=== PATIENT | female | born 1980 | race Caucasian/White ===

== ENCOUNTER → 2020-06-23 15:20 | Outpatient (BNVA) | payer OTHER, SELFPAY | PROVIDERS: Visit Provider Obstetrics & Gynecology | DX: Z76.89 Persons encountering health services in other specified circumstances (principal) ==

== ENCOUNTER 2020-07-28 08:16 | Outpatient (REF) | payer OTHER, SELFPAY ==
[2020-07-28 08:28] LABS: COVID-19 Test Positive (Negative)
== END 2020-07-28 08:17 | disposition home or self-care (01) ==
LOC: HO.EMPCOV 08:16
PROVIDERS: Visit Provider Internal Medicine
DX: Z20.828 Contact with and (suspected) exposure to other viral communicable diseases (principal)
CPT/HCPCS: 36415; 87635; C9803

== ENCOUNTER 2020-10-10 09:13 | Outpatient (REF) | payer OTHER, SELFPAY ==
[2020-10-10 09:34] LABS: COVID-19 Test Negative (Negative)
== END 2020-10-10 09:14 | disposition home or self-care (01) ==
LOC: HO.EMPCOV 09:13
PROVIDERS: Visit Provider Internal Medicine
DX: Z20.822 Contact with and (suspected) exposure to COVID-19 (principal)
CPT/HCPCS: 36415; 87635; C9803

== ENCOUNTER 2020-10-20 12:11 | Outpatient (REF) | payer OTHER, SELFPAY ==
[2020-10-20 14:00] LABS: Hematocrit 38.1 % (37-47); Hemoglobin 12.3 g/dl (12.0-16.0); Mean Corpuscular HGB Conc 32.3 g/dl (31.0-35.0); Mean Corpuscular Hemoglobin 27.5 pg (27.0-33.0); Mean Corpuscular Volume 85.2 fL (80-98); Mean Platelet Volume 10.5 fL (9.4-12.3); Platelet Count 227 X10*3/uL (160-400); Red Blood Count 4.47 X10*6/uL (4.20-5.50); Red Cell Distribution Width 14.2 % (11.0-16.0); White Blood Count 5.2 X10*3/uL (4.8-10.8)
[2020-10-20 14:16] LABS: Anion Gap 13 (12-20); Blood Urea Nitrogen 16 mg/dL (9-16); Calcium 8.7 mg/dL (8.4-10.2); Carbon Dioxide 26 mmol/L (22-29); Chloride 101 mmol/L (96-108); Cholesterol 242 mg/dL; Estimated Glomerular Filt Rate > 60; Glucose Random 112 mg/dL (60-115); HDL Cholesterol 60 mg/dL; Iron 30 mcg/dL (30-160); Percent Iron Saturation 7 % (15-50); Potassium 3.4 mmol/L (3.3-5.1); Sodium 137 mmol/L (135-145); Total Iron Binding Capacity 408 mcg/dL (228-428); Unsaturated Iron Binding 378 ug/dL
[2020-10-20 14:38] LABS: Ferritin 44 ng/mL (10-122); TSH reflex Free T4 1.26 uIU/mL (0.32-4.0); Vitamin D 25-OH Total 11.4 ng/mL (>30)
[2020-10-21 08:18] LABS: LDL Cholesterol Direct 171 mg/dL (<100)
== END 2020-10-20 12:12 | disposition home or self-care (01) ==
LOC: HO.HMGCLDS 12:11
PROVIDERS: Visit Provider Internal Medicine
DX: Z00.00 Encounter for general adult medical examination without abnormal findings (principal); E78.00 Pure hypercholesterolemia, unspecified; E55.9 Vitamin D deficiency, unspecified; G98.0 Neurogenic arthritis, not elsewhere classified; Z80.0 Family history of malignant neoplasm of digestive organs
CPT/HCPCS: 36415; 80048; 82306; 82465; 82728; 83540; 83718; 83721; 84443; 85027

== ENCOUNTER 2020-11-26 13:14 | Inpatient (IN) | payer OTHER, SELFPAY ==
[2020-11-26] VITALS (7 sets, daily range): BP systolic 108–140; BP diastolic 60–95; PULSE 64–147; RESP 14–18; TEMP 36.6–36.9; O2SAT 96–100; BMI 25.2
--- NOTE | ~2020-11-26 | XR_ITS ---
EXAMINATION: XR CHEST CLINICAL INFORMATION: New onset of atrial fibrillation COMPARISON: None TECHNIQUE: 2 views of the chest were obtained. FINDINGS: No significant abnormality is noted involving the heart, lungs, mediastinum, bony thorax or soft tissues. XR/XR chest 2V IMPRESSION: Unremarkable chest examination.
--- NOTE | 2020-11-26 13:56 | ECG_ITS ---
Test Reason : ARRTHYMIA Blood Pressure : / mmHG Vent. Rate : 073 BPM Atrial Rate : 073 BPM P-R Int : 144 ms QRS Dur : 072 ms QT Int : 396 ms P-R-T Axes : 052 059 -23 degrees QTc Int : 436 ms Normal sinus rhythm Low voltage QRS ST & T wave abnormality, consider inferior ischemia Abnormal ECG No previous ECGs available Referred By: Lizzie Ramirez Electronically Signed By:CAL ASHER MD
[2020-11-26] MEDS: 0.9 % Sodium Chloride 1,000 ML 999 ML IVCONT (14:45)
[2020-11-26] MEDS: Metoprolol Succinate ER 25 MG TAB.ER.24H PO (14:55)
--- NOTE | 2020-11-26 16:03 | ED_ITS ---
HPI - Arrhythmia/Palpitations General Chief Complaint: Arrhythmia/Palpitations Stated Complaint: PALPITATIONS,HR 90-150'S PER EMS Time Seen by Provider: 11/26/20 13:53 Source: patient Mode of arrival: ambulatory Limitations: no limitations History of Present Illness HPI narrative: 40-year-old female with a past medical history of Charcot-Elena Tooth Disease presenting to the ED with complaints of feeling like her heart is racing over the past 3 days intermittently worse today. She was sent over by her primary care provider's office due to she made a general appointment due to the sensation of her heart was racing they performed an EKG and they found her to be in atrial fibrillation and therefore they sent her here for further evaluation and treatment. Patient denies any stressors, dizziness, headaches, lightheadedness, changes in vision, chest pain, shortness of breath, dyspnea on exertion, orthopnea, abdominal pain, back pain, lower extremity edema, calf tenderness, recent travel, sick contacts, history of hypercoagulation disorder, estrogen usage, recent surgery or immobilization, history of cancer, history of drug usage or alcohol usage, recent trauma or any other symptoms complaints or concerns at this time. Patient admits to currently being on her menstrual. Although she reports her flow has been normal as usual. She denies any clots. She denies having history of atrial fibrillation. She denies being on any blood thinners. - 16:30pm At this time I went back into the room to ask the patient if she drank any monsters or red Bulls because she denied any alcohol or drug usage initially or she did not hear me properly when I asked her although at this time she reports that on Tuesday she drank approximately 3 beers. She reports she is not a daily drinker. complaint: heart racing Onset (ago): day(s) (Intermittently over the past 3 days) Severity: moderate Context: occurred during rest Associated symptoms: denies other symptoms Related Data Home Medications Medication Instructions Recorded Confirmed No Known Home Meds 11/26/20 11/26/20 Allergies Allergy/AdvReac Type Severity Reaction Status Date / Time No Known Allergies Allergy Verified 06/23/20 15:32 Review of Systems Review of Systems: Constitutional : No Weight loss, No Fever, No Chills, No Night Sweats, No Fatigue, No Malaise ENT/Mouth : No Hearing loss, No Ear Pain, No Nasal Congestion, No Sinus Pain, No Hoarseness, No sore throat, No Rhinorrhea, No Swallowing Difficulty Eyes: No Eye Pain, No Swelling, No Redness, No Foreign Body, No Discharge, No Vision Changes Cardiovascular : Positive palpitations, No Chest Pain, No SOB, no Dyspnea on Exertion, No Orthopnea, No Edema, No extremity swelling Respiratory : No Cough, No Sputum, No Wheezing, No Dyspnea Gastrointestinal : No Nausea, No Vomiting, No Diarrhea, No abdominal Pain, No Hematochezia, No Melena Genitourinary : No irregular bleeding, No Dysuria, No Urinary Frequency, No Hematuria, No Urinary Incontinence, No Urgency, No Flank Pain, No Urinary Flow Changes, No Hesitancy Musculoskeletal : No joint pain, No Myalgias, No Joint Swelling Skin : No Skin Lesions, No rash Neuro : No Weakness, No Numbness, No Paresthesias, No Loss of Consciousness, No Dizziness, No Headache Psych : No Anxiety/Panic, No Depression, No SI/HI/AH/VH Heme/Lymph: No Bruising, No Bleeding,No Lymphadenopathy Endocrine : No Polyuria, No Polydipsia, No Temperature Intolerance Yes all other systems are reviewed and are negative PMFSH Past Medical History Attestation statement: The following information was validated with the patient. Medical History CMT (Hafbpzb-Qlpgy-Trdzc disease) Surgical History Hx of section Hx of foot surgery Family History Family History Mother Colon cancer Social History Social History Alcohol intake: current Smoking Status: Never smoker Advance Directives: No Advance Directives Information Provided: No Patient : No Sexual orientation: Straight/Heterosexual Gender identity: female Physical Exam Vital Signs: Vital Signs: Last Vital Signs Temp 98.4 F 11/26/20 13:24 Pulse 147 H 11/26/20 14:55 Resp 14 11/26/20 13:24 BP 134/81 11/26/20 14:55 Pulse Ox 100 11/26/20 13:24 Body Mass Index 25.2 vital signs have been reviewed as normal and appeared to be correct. Blood pressure normal. Heart rate normal. Respiration rate normal. Temperature normal. Oxygen saturation normal. Appearance: Alert. Oriented X3. No acute distress. Head: Normal external exam. Normocephalic. Eyes: PERRLA. EOMI. Conjunctiva and sclera normal. Eyelids normal. ENT: Pharynx normal. Uvula midline. Moist mucous membranes. No trismus noted. No drooling noted. No muffled voice noted. Neck: Normal inspection. Neck supple. FROM. No adenopathy. No meningeal signs. CVS: Normal heart rate and rhythm. Although patient goes into atrial fibrillation intermittently up to a rate 170. Heart sound normal. No murmurs noted. Pulses normal throughout. Respiratory: No respiratory distress. Painless inspiration. Breath sounds normal. No wheezes/rales/rhonchi noted. Chest nontender. No accessory muscle usage noted or decreased air movement noted. Abdomen: Soft and nontender. Nondistended. No guarding. No rigidity. Bowel sounds normal in all 4 quadrants. No distention noted. No organomegaly noted. No visible injury noted. No rebound tenderness. Negative Rovsing sign. Negative obturator's sign. Negative psoas sign. Negative Turk sign. Back: No CVA tenderness. Full range of motion noted. Skin: Skin warm and dry. Normal skin color. Normal skin turgor. No rashes/lesions/lacerations noted. Extremities: Extremities exhibit normal range of motion. Extremities nontender. Neuro: Oriented X 3. No motor deficit. No sensory deficit. Reflexes normal. Normal steady gait. Course Course Course Narrative: 14:50pm - patient appears to be going into paroxysmal atrial fibrillation on the phototypesetting equipment monitor therefore consulted with Dr. Nielson and he requested patient not be placed on any anticoagulation although he reported that the patient can be started on 25 mg of metoprolol XL, to order a cardiac echo and to admit for observation - therefore patient will be admitted after her labs are obtained for observation for new onset of paroxysmal atrial fibrillation. Patient understands agrees with this plan. Reevaluation(s) Reevaluation #1: - labs returned and all within normal limits. Serum quant negative for . ETOH level negative. Chest x-ray negative for pneumonia or any other acute processes. EKG was normal sinus rhythm no acute ischemic changes were noted. Although on the phototypesetting equipment monitor patient was going into paroxysmal atrial fibrillation therefore she will be admitted for an echo in observation for new onset of paroxysmal atrial fibrillation. Patient understands agrees with this plan. Time: 17:04 MDM - Arrhythmia/Palpitations MDM Narrative Medical decision making narrative: 14pm - 40-year-old female with a past medical history of Charcot-Elena Tooth Disease presenting to the ED with complaints of feeling like her heart is racing over the past 3 days intermittently worse today. - On exam patient is alert and oriented x3. Not in any acute distress. She was not tachycardic initially when she arrived although we placed on the phototypesetting equipment monitor she goes up to 170 beats per minute into atrial fibrillation that she dropped back down to the 70s. Otherwise other vitals are within normal limits. No focal neuro deficits are noted. Lungs clear to auscultation. Abdomen is soft and nontender. No lower extremity edema or calf tenderness noted. - Plan: Labs, chest x-ray, EKG, phototypesetting equipment monitor, med reconciliation due to patient will need to be admitted for new onset of atrial fibrillation. Then re-evaluate Medical Records Attestation: I reviewed the patient's medical records. Lab Data Attestation: I reviewed the patient's lab results. Result diagrams: 11/26/20 16:14 11/26/20 16:14 Labs: Lab Results 11/26/20 11/26/20 11/26/20 Range/Units 16:14 16:14 16:14 WBC 6.2 (4.8-10.8) X10*3/uL RBC 4.75 (4.20-5.50) X10*6/uL Hgb 13.3 (12.0-16.0) g/dl Hct 39.8 (37-47) % MCV 83.8 (80-98) fL MCH 28.0 (27.0-33.0) pg MCHC 33.4 (31.0-35.0) g/dl RDW 13.5 (11.0-16.0) % Plt Count 253 (160-400) X10*3/uL MPV 10.2 (9.4-12.3) fL Immature Gran % (Auto) 0.3 (0.0-0.4) % Neut % (Auto) 68.9 (45-73) % Lymph % (Auto) 21.8 (20-40) % [place] % (Auto) 7.1 (2-11) % Eos % (Auto) 1.3 (0-4) % Baso % (Auto) 0.6 (0-2) % Lymph # (Auto) 1.4 (1.2-4.9) X10*3/uL [place] # (Auto) 0.4 (0.1-1.2) X10*3/uL Eos # (Auto) 0.1 (0.0-0.4) X10*3/uL Baso # (Auto) 0.0 (0.0-0.2) X10*3/uL Abs Immat Gran (auto) 0.02 (0.00-0.03) X10*3/uL Absolute Neuts (auto) 4.3 (2.0-8.3) X10*3/uL Absolute Nucleated RBC 0.000 (0.0-0.012) X10*3/uL Nucleated RBC % (auto) 0.0 (0.0-0.2) /100WBC PT 13.4 H (10.8-13.0) SEC INR 1.1 (0.9-1.1) D-Dimer NG/ML Sodium (135-145) mmol/L Potassium (3.3-5.1) mmol/L Chloride (96-108) mmol/L Carbon Dioxide (22-29) mmol/L Anion Gap (12-20) BUN (9-16) mg/dL Creatinine (0.5-1.4) mg/dL Estim Creat Clear Calc Estimated GFR Random Glucose (60-115) mg/dL Calcium (8.4-10.2) mg/dL Magnesium 1.9 (1.6-2.6) mg/dL Total Bilirubin (0.0-1.0) mg/dL AST (5-31) U/L ALT (0-31) U/L Alkaline Phosphatase (39-117) U/L Troponin I High Sens (<3.5-17.0) ng/L B-Natriuretic Peptide (<100) pg/mL Total Protein (6.5-8.0) g/dL Albumin (3.5-5.0) g/dL Beta HCG, Quant mIU/mL Ethyl Alcohol mg/dL 11/26/20 11/26/20 11/26/20 Range/Units 16:14 16:14 16:15 WBC (4.8-10.8) X10*3/uL RBC (4.20-5.50) X10*6/uL Hgb (12.0-16.0) g/dl Hct (37-47) % MCV (80-98) fL MCH (27.0-33.0) pg MCHC (31.0-35.0) g/dl RDW (11.0-16.0) % Plt Count (160-400) X10*3/uL MPV (9.4-12.3) fL Immature Gran % (Auto) (0.0-0.4) % Neut % (Auto) (45-73) % Lymph % (Auto) (20-40) % [place] % (Auto) (2-11) % Eos % (Auto) (0-4) % Baso % (Auto) (0-2) % Lymph # (Auto) (1.2-4.9) X10*3/uL [place] # (Auto) (0.1-1.2) X10*3/uL Eos # (Auto) (0.0-0.4) X10*3/uL Baso # (Auto) (0.0-0.2) X10*3/uL Abs Immat Gran (auto) (0.00-0.03) X10*3/uL Absolute Neuts (auto) (2.0-8.3) X10*3/uL Absolute Nucleated RBC (0.0-0.012) X10*3/uL Nucleated RBC % (auto) (0.0-0.2) /100WBC PT (10.8-13.0) SEC INR (0.9-1.1) D-Dimer NG/ML Sodium 141 (135-145) mmol/L Potassium 3.8 (3.3-5.1) mmol/L Chloride 107 (96-108) mmol/L Carbon Dioxide 27 (22-29) mmol/L Anion Gap 11 L (12-20) BUN 9 (9-16) mg/dL Creatinine 0.70 (0.5-1.4) mg/dL Estim Creat Clear Calc 101.3 Estimated GFR > 60 Random Glucose 91 (60-115) mg/dL Calcium 9.0 (8.4-10.2) mg/dL Magnesium (1.6-2.6) mg/dL Total Bilirubin 0.7 (0.0-1.0) mg/dL AST 17 (5-31) U/L ALT 13 (0-31) U/L Alkaline Phosphatase 78 (39-117) U/L Troponin I High Sens < 3.5 (<3.5-17.0) ng/L B-Natriuretic Peptide 47 (<100) pg/mL Total Protein 7.6 (6.5-8.0) g/dL Albumin 4.4 (3.5-5.0) g/dL Beta HCG, Quant mIU/mL Ethyl Alcohol < 10 mg/dL 11/26/20 11/26/20 Range/Units 16:15 16:16 WBC (4.8-10.8) X10*3/uL RBC (4.20-5.50) X10*6/uL Hgb (12.0-16.0) g/dl Hct (37-47) % MCV (80-98) fL MCH (27.0-33.0) pg MCHC (31.0-35.0) g/dl RDW (11.0-16.0) % Plt Count (160-400) X10*3/uL MPV (9.4-12.3) fL Immature Gran % (Auto) (0.0-0.4) % Neut % (Auto) (45-73) % Lymph % (Auto) (20-40) % [place] % (Auto) (2-11) % Eos % (Auto) (0-4) % Baso % (Auto) (0-2) % Lymph # (Auto) (1.2-4.9) X10*3/uL [place] # (Auto) (0.1-1.2) X10*3/uL Eos # (Auto) (0.0-0.4) X10*3/uL Baso # (Auto) (0.0-0.2) X10*3/uL Abs Immat Gran (auto) (0.00-0.03) X10*3/uL Absolute Neuts (auto) (2.0-8.3) X10*3/uL Absolute Nucleated RBC (0.0-0.012) X10*3/uL Nucleated RBC % (auto) (0.0-0.2) /100WBC PT (10.8-13.0) SEC INR (0.9-1.1) D-Dimer 255 NG/ML Sodium (135-145) mmol/L Potassium (3.3-5.1) mmol/L Chloride (96-108) mmol/L Carbon Dioxide (22-29) mmol/L Anion Gap (12-20) BUN (9-16) mg/dL Creatinine (0.5-1.4) mg/dL Estim Creat Clear Calc Estimated GFR Random Glucose (60-115) mg/dL Calcium (8.4-10.2) mg/dL Magnesium (1.6-2.6) mg/dL Total Bilirubin (0.0-1.0) mg/dL AST (5-31) U/L ALT (0-31) U/L Alkaline Phosphatase (39-117) U/L Troponin I High Sens (<3.5-17.0) ng/L B-Natriuretic Peptide (<100) pg/mL Total Protein (6.5-8.0) g/dL Albumin (3.5-5.0) g/dL Beta HCG, Quant < 2 mIU/mL Ethyl Alcohol mg/dL Imaging Data Chest x-ray: Attestation: I personally reviewed and interpreted this imaging study as follows: Radiologist's impression: FINDINGS: No significant abnormality is noted involving the heart, lungs, mediastinum, bony thorax or soft tissues. XR/XR chest 2V IMPRESSION: Unremarkable chest examination. ECG Data Attestation: I personally reviewed and interpreted this ECG as follows: ECG interpretation date: 11/26/20 ECG interpretation time: 14:11 Interpretation: Normal sinus rhythm with low-voltage QRS with nonspecific ST and T-wave abnormalities no acute ischemic changes are noted patient is currently not in atrial fibrillation at this time although on a phototypesetting equipment monitor patient goes into paroxysmal atrial fibrillation. No prior EKGs in our system to compare to at this time. Critical Care Time Critical Care Time Critical Care Time: Yes Total Critical Care Time: 60 Attestation: I personally attest to this time spent taking care of the patient Discharge Plan Discharge Clinical Impression: Paroxysmal atrial fibrillation Patient Disposition: Admitted As Inpatient
[2020-11-26 16:26] LABS: MANUAL DIFF FLAG NO
[2020-11-26 16:29] LABS: Basophils Percent Auto 0.6 % (0-2); Eosinophils Absolute Auto 0.1 X10*3/uL (0.0-0.4); Eosinophils Percent Auto 1.3 % (0-4); Hematocrit 39.8 % (37-47); Hemoglobin 13.3 g/dl (12.0-16.0); Imm Gran Abs Auto 0.02 X10*3/uL (0.00-0.03); Imm Gran Pct Auto 0.3 % (0.0-0.4); Lymphocytes Absolute Auto 1.4 X10*3/uL (1.2-4.9); Lymphocytes Percent Auto 21.8 % (20-40); Mean Corpuscular HGB Conc 33.4 g/dl (31.0-35.0); Mean Corpuscular Volume 83.8 fL (80-98); Mean Platelet Volume 10.2 fL (9.4-12.3); Monocytes Absolute Auto 0.4 X10*3/uL (0.1-1.2); Monocytes Percent Auto 7.1 % (2-11); Neutrophils Absolute Auto 4.3 X10*3/uL (2.0-8.3); Neutrophils Percent Auto 68.9 % (45-73); Platelet Count 253 X10*3/uL (160-400); Red Blood Count 4.75 X10*6/uL (4.20-5.50); Red Cell Distribution Width 13.5 % (11.0-16.0); White Blood Count 6.2 X10*3/uL (4.8-10.8)
[2020-11-26 16:33] LABS: INTERNATIONAL NORM RATIO 1.1 (0.9-1.1); Prothrombin Time 13.4 SEC (10.8-13.0)
[2020-11-26 16:36] LABS: D Dimer 255 NG/ML
[2020-11-26 16:48] LABS: Ethanol < 10 mg/dL
[2020-11-26 16:54] LABS: HCG Quantitative < 2 mIU/mL
[2020-11-26 16:54] LABS: Alanine Aminotransferase 13 U/L (0-31); Albumin Level 4.4 g/dL (3.5-5.0); Alkaline Phosphatase 78 U/L (39-117); Anion Gap 11 (12-20); Aspartate Amino Transferase 17 U/L (5-31); B Type Natriuretic Peptide 47 pg/mL (<100); Bilirubin Total 0.7 mg/dL (0.0-1.0); Blood Urea Nitrogen 9 mg/dL (9-16); Carbon Dioxide 27 mmol/L (22-29); Chloride 107 mmol/L (96-108); Creatinine Clr Calc Pharmacy 101.3; Estimated Glomerular Filt Rate > 60; Glucose Random 91 mg/dL (60-115); Magnesium 1.9 mg/dL (1.6-2.6); Potassium 3.8 mmol/L (3.3-5.1); Sodium 141 mmol/L (135-145); Total Protein 7.6 g/dL (6.5-8.0); Troponin-I High Sensitivity < 3.5 ng/L (<3.5-17.0)
[2020-11-26 17:06] LABS: Influenza A PCR NEGATIVE (Negative); Influenza B PCR NEGATIVE (Negative); Resp Syncy Virus RNA Qual PCR NEGATIVE (Negative); SARS COV2 PCR INHOUSE NEGATIVE (Negative)
[2020-11-26 17:08] LABS: Thyroid Stimulating Hormone 1.05 uIU/mL (0.32-4.0)
--- NOTE | 2020-11-26 17:23 | PM.IMHP ---
History of Present Illness Date of Service: 11/26/20 <Jeannette Kennedy NP - Last Filed: 11/26/20 17:53> Chief Complaint: Palpitations <Jeannette Kennedy NP - Last Filed: 11/26/20 17:53> 40-year-old woman presented to the ER with complaints of worsening palpitations she reports they started around Tuesday. She was just feeling as if her heart was racing and it would come and go. She denied any symptoms of chest pain, shortness of breath, diaphoresis, nausea, vomiting, diarrhea, headache, visual changes, loss of consciousness. She denies any history of palpitations like this in past. She does not have any significant medical history, she takes no medications. She reported that on Tuesday she had 3 beers but usually only drinks maybe twice a month. She denied any heavily caffeinated items including coffee and caffeine drinks. She denied any drug use or tobacco use. She reported that her grandmother has a history of pacemaker but does not know the reason why. During the interview patient appeared to be sitting calmly in her bed and her heart rate would go from 60-150 within seconds. Chest x-ray is negative for consolidation. EKG showed normal sinus rhythm with nonspecific ST wave abnormalities. Labs all within acceptable limits. Blood pressure stable and the 120s to 130s systolic. In the ER she was given IV diltiazem, oral metoprolol, 1 L of IV fluid. She will be admitted for further management treatment of acute atrial fibrillation with rapid ventricular response. <Jeannette Kennedy NP - Last Filed: 11/26/20 17:53> Review of Systems Review of Systems: Denies any recent fever chills or decrease in appetite respiratory denies any shortness of breath coverage production cardiovascular See HPI gastrointestinal denies any dysphagia abdominal pain nausea vomiting or diarrhea genitourinary denies any dysuria frequency or hematuria, normal menses musculoskeletal denies any joint pain or swelling neuropsych denies any weakness or seizures all other systems reviewed are negative <Jeannette Kennedy NP - Last Filed: 11/26/20 17:53> [facility] Medical History: Medical History CMT (Qzqxvnj-Nfadt-Kxcwj disease) <Jeannette Kennedy NP - Last Filed: 11/26/20 17:53> Family History: Family History Mother Colon cancer <Jeannette Kennedy NP - Last Filed: 11/26/20 17:53> Surgical History: Surgical History Hx of section Hx of foot surgery <Jeannette Kennedy NP - Last Filed: 11/26/20 17:53> Social History: Social History Household Members: Spouse and Children Housing: House Do you presently have visiting nurse or other home services: No Alcohol intake: never Smoking Status: Never smoker Use of substances other than those prescribed or required for medical reasons: No Currently Displaying Signs/Symptoms of Drug Intoxication Withdrawal: No Have you been hit, kicked, punched, or otherwise hurt by someone within the past year? If so, by whom?: No Do you feel safe in your current relationship?: Yes Is there a partner from a previous relationship who is making you feel unsafe now?: No Are you made to feel afraid or neglected: No Advance Directives: No Advance Directives Information Provided: No Do you have thoughts of harming others: None Do you have a plan to hurt others: No Plan Recently lost weight without trying: No How much weight loss: Not applicable Eating poorly because of decreased appetite: No Nutrition screen score: 0 Nutrition Risks: No Nutritional Risk Patient : No : No Poor oral hygiene: No Sexual orientation: Straight/Heterosexual Gender identity: female <Jeannette Kennedy NP - Last Filed: 11/26/20 17:53> Meds Allergies/Adverse reactions: Allergies Allergy/AdvReac Type Severity Reaction Status Date / Time No Known Allergies Allergy Verified 06/23/20 15:32 <Jeannette Kennedy NP - Last Filed: 11/26/20 17:53> Active Medications: Current Medications Generic Name Dose Route Start Last Admin Trade Name Freq PRN Reason Stop Dose Admin Pharmacy Consult 1 each 11/26/20 14:48 Consult Rx Perform Med Rec MISCELLANE ONCE PRN Consult order <Jeannette Kennedy NP - Last Filed: 11/26/20 17:53> Home medications: Home Medications Medication Instructions Recorded Confirmed Last Taken Type No Known Home Meds 11/26/20 11/26/20 Unknown History <Jeannette Kennedy NP - Last Filed: 11/26/20 17:53> Physical Exam Vital Signs and Narrative: Vital Signs: Last Vital Signs Temp 98.4 F 11/26/20 13:24 Pulse 72 11/26/20 17:14 Resp 18 11/26/20 17:14 BP 123/80 11/26/20 17:14 Pulse Ox 96 11/26/20 17:14 Body Mass Index 25.2 <Jeannette Kennedy NP - Last Filed: 11/26/20 17:53> Denies any recent fever chills or decrease in appetite respiratory denies any shortness of breath coverage production cardiovascular irregularly irregular gastrointestinal denies any dysphagia abdominal pain nausea vomiting or diarrhea genitourinary denies any dysuria frequency or hematuria musculoskeletal denies any joint pain or swelling neuropsych denies any weakness or seizures all other systems reviewed are negative <Jeannette Kennedy NP - Last Filed: 11/26/20 17:53> Results Labs CBC and Chem 7: : 11/27/20 05:43 11/27/20 05:43 <Jeannette Kennedy NP - Last Filed: 11/26/20 17:53> Labs: Laboratory Results - last 24 hr 11/26/20 11/26/20 11/26/20 16:14 16:14 16:14 MCV 83.8 MCH 28.0 MCHC 33.4 RDW 13.5 Plt Count 253 MPV 10.2 Immature Gran % (Auto) 0.3 Neut % (Auto) 68.9 Lymph % (Auto) 21.8 [place] % (Auto) 7.1 Eos % (Auto) 1.3 Baso % (Auto) 0.6 Lymph # (Auto) 1.4 [place] # (Auto) 0.4 Eos # (Auto) 0.1 Baso # (Auto) 0.0 Abs Immat Gran (auto) 0.02 Absolute Neuts (auto) 4.3 Absolute Nucleated RBC 0.000 Nucleated RBC % (auto) 0.0 PT 13.4 H INR 1.1 D-Dimer Anion Gap Estim Creat Clear Calc Estimated GFR Random Glucose Calcium Magnesium 1.9 Total Bilirubin AST ALT Alkaline Phosphatase Troponin I High Sens B-Natriuretic Peptide Total Protein Albumin TSH Beta HCG, Quant Ethyl Alcohol 11/26/20 11/26/20 11/26/20 16:14 16:14 16:15 MCV MCH MCHC RDW Plt Count MPV Immature Gran % (Auto) Neut % (Auto) Lymph % (Auto) [place] % (Auto) Eos % (Auto) Baso % (Auto) Lymph # (Auto) [place] # (Auto) Eos # (Auto) Baso # (Auto) Abs Immat Gran (auto) Absolute Neuts (auto) Absolute Nucleated RBC Nucleated RBC % (auto) PT INR D-Dimer Anion Gap 11 L Estim Creat Clear Calc 101.3 Estimated GFR > 60 Random Glucose 91 Calcium 9.0 Magnesium Total Bilirubin 0.7 AST 17 ALT 13 Alkaline Phosphatase 78 Troponin I High Sens < 3.5 B-Natriuretic Peptide 47 Total Protein 7.6 Albumin 4.4 TSH Beta HCG, Quant Ethyl Alcohol < 10 11/26/20 11/26/20 11/26/20 16:15 16:15 16:16 MCV MCH MCHC RDW Plt Count MPV Immature Gran % (Auto) Neut % (Auto) Lymph % (Auto) [place] % (Auto) Eos % (Auto) Baso % (Auto) Lymph # (Auto) [place] # (Auto) Eos # (Auto) Baso # (Auto) Abs Immat Gran (auto) Absolute Neuts (auto) Absolute Nucleated RBC Nucleated RBC % (auto) PT INR D-Dimer 255 Anion Gap Estim Creat Clear Calc Estimated GFR Random Glucose Calcium Magnesium Total Bilirubin AST ALT Alkaline Phosphatase Troponin I High Sens B-Natriuretic Peptide Total Protein Albumin TSH 1.05 Beta HCG, Quant < 2 Ethyl Alcohol <Jeannette Kennedy NP - Last Filed: 11/26/20 17:53> Imaging Radiologist's Impressions: Impressions Chest X-Ray 11/26/20 13:56 IMPRESSION: Unremarkable chest examination. <Jeannette Kennedy NP - Last Filed: 11/26/20 17:53> Assessment and Plan (1) Atrial fibrillation with rapid ventricular response: Status: Deleted <Jeannette Kennedy NP - Last Filed: 11/26/20 17:53> 40-year-old woman admitted with new onset atrial fibrillation with rapid ventricular response. Her only symptom is feeling a fast heart rate. She is noted to have very quick elevation in decrease in her heart rate and it comes and goes without any obvious triggers. Atrial fibrillation with rapid ventricular response. New onset. Healthy individual. No electrolyte abnormalities, normal blood pressure, no heavy alcohol, caffeine or drug use. May need ablation at some point, very sporadic rise and fall in heart rate - Cardiology consultation, - echocardiogram - telemetry monitoring - Metoprolol 12.5 BID for now DVT prophylaxis with Lovenox full code Attending: Dr. Guevara <Jeannette Kennedy NP - Last Filed: 11/26/20 17:53> (2) Paroxysmal atrial fibrillation: Status: Acute <Jeannette Kennedy NP - Last Filed: 11/26/20 17:53> Addendum to documentation by midlevel I saw and examined the patient and participated in the gil portion of the E/M service. I agree with the history and exam as documented by ARRESTING GEAR OPERATOR/PA. Patient presents with PAF of no specific triger, she symptomatic. Exam: is normal, other ireg iregular. Willl admit for rate or rythm control, in the long run may benefit fro ablation if this persists. Hold anticoagulation for now. Otherwise, I agree with assessment and plan as outlined in the H and P. DOS: 11/26/20 <Newton Guevara MD - Last Filed: 11/27/20 07:37>
[2020-11-26 17:43] LABS: Glucose Urine UA NEG (NEG); Leukocyte Esterase Urine 1+ (NEG); Nitrite Urine NEG (NEG); Specific Gravity - Urine 1.015 (1.005-1.025); UACC Culture Trigger YES; Urine Blood 2+ (NEG); Urine Ketones 5 MG/DL (NEG); Urine Protein NEG (NEG-TRACE)
[2020-11-26 17:46] LABS: Appearance Urine CLEAR; Color Urine YELLOW
[2020-11-26 17:50] LABS: Bacteria Urine TRACE /LPF; RBC Urine 0 /HPF (0); Squamous Epithelial Cell Urine 1+ /LPF; WBC Urine 0-2 /HPF (0-4)
--- NOTE | 2020-11-26 17:54 | PC.NURSE ---
x1 attempt to give report to [facility]. Awaiting callback
--- NOTE | 2020-11-26 18:04 | PC.NURSE ---
Report given to billy clark on [facility]
[2020-11-26] MEDS: Metoprolol Tartrate 12.5 MG HALFTAB PO (21:37)
[2020-11-26] MEDS: Enoxaparin Sodium 40 MG/0.4 ML SYRINGE SUBCUT (21:37)
[2020-11-26] MEDS: 0.9 % Sodium Chloride Flush 3 ML SYRINGE IVFLUSH (21:41)
[2020-11-27 03:16] VITALS: BP 99/56; PULSE 87; RESP 18; TEMP 36.5; O2SAT 98
[2020-11-27 06:41] LABS: MANUAL DIFF FLAG NO
[2020-11-27 06:49] LABS: Basophils Percent Auto 0.7 % (0-2); Eosinophils Absolute Auto 0.3 X10*3/uL (0.0-0.4); Eosinophils Percent Auto 5.9 % (0-4); Hematocrit 37.4 % (37-47); Hemoglobin 12.3 g/dl (12.0-16.0); Imm Gran Abs Auto 0.01 X10*3/uL (0.00-0.03); Imm Gran Pct Auto 0.2 % (0.0-0.4); Lymphocytes Absolute Auto 1.8 X10*3/uL (1.2-4.9); Lymphocytes Percent Auto 33.7 % (20-40); Mean Corpuscular HGB Conc 32.9 g/dl (31.0-35.0); Mean Corpuscular Hemoglobin 27.8 pg (27.0-33.0); Mean Corpuscular Volume 84.6 fL (80-98); Mean Platelet Volume 10.4 fL (9.4-12.3); Monocytes Absolute Auto 0.6 X10*3/uL (0.1-1.2); Monocytes Percent Auto 11.5 % (2-11); Neutrophils Absolute Auto 2.6 X10*3/uL (2.0-8.3); Platelet Count 227 X10*3/uL (160-400); Red Blood Count 4.42 X10*6/uL (4.20-5.50); Red Cell Distribution Width 13.6 % (11.0-16.0); White Blood Count 5.4 X10*3/uL (4.8-10.8)
[2020-11-27 07:13] LABS: Anion Gap 10 (12-20); Blood Urea Nitrogen 12 mg/dL (9-16); Carbon Dioxide 28 mmol/L (22-29); Chloride 108 mmol/L (96-108); Creatinine Clr Calc Pharmacy 94.5; Estimated Glomerular Filt Rate > 60; Glucose Random 88 mg/dL (60-115); Potassium 3.9 mmol/L (3.3-5.1); Sodium 142 mmol/L (135-145)
[2020-11-27 07:32] VITALS: BP 110/64; PULSE 56; RESP 17; TEMP 36.2; O2SAT 98
--- NOTE | 2020-11-27 08:54 | MHC.CM.PN ---
CM met with Patient at bedside. 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 Patient's goal is to return home/no services and CM has initiated and will follow for dc planning.
--- NOTE | 2020-11-27 09:05 | MHC.CM.PN ---
CM met with Patient at bedside. Patient is homeless and has a diagnosis of IVDA. Patient does not appear to be on Methadone and she denies having any children, nor a PCP.DC plan is TBD at this point.Patient will need a CARE TEAM consult. CM will follow for dc planning.
[2020-11-27 10:20] VITALS: BP 106/68; PULSE 69
[2020-11-27] MEDS: 0.9 % Sodium Chloride Flush 3 ML SYRINGE IVFLUSH (10:21)
--- NOTE | 2020-11-27 10:54 | PM.CNCAR ---
History of Present Illness History of Present Illness Date of Service: 11/27/20 Requesting physician: Frandy Martines Consult reason: atrial fibrillation Chief complaint: Afib RVR Narrative: Thank you for the consult on [place] for new onset atrial fibrillation. 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 Patient presented with symptoms of palpitations. Says about 2 days ago while she was at home she started noticing rapid heart rate while she was resting. Symptoms would last for few minutes and subside and will come back again. She then called her primary care physician was saw her yesterday and she was noted to be in atrial fibrillation was referred to the emergency room. In the emergency room interestingly she was having sinus rhythm with intermittent burst of atrial fibrillation. Overnight she was admitted for observation because of the symptoms and has remained in sinus rhythm with frequent PACs. She denies any symptoms of palpitation says overall feels well. She has no recent changes in her health. She is not . Her TSH is within normal limits. She denies any recent changes in her lifestyle with no recent [id number] medications. She denies any excessive stimulant use. Review of Systems Constitutional: Constitutional: Reports no additional constitutional complaints Cardiovascular: Cardiovascular: Reports no additional cardiovascular complaints Respiratory: Respiratory: Reports no additional respiratory complaints Gastrointestinal: Gastrointestinal: Reports no additional gastrointestinal complaints Genitourinary: Genitourinary: Reports no additional female genitourinary complaints Musculoskeletal: Musculoskeletal: Reports no additional musculoskeletal complaints Neurologic: Reports system reviewed and no additional complaints, except as documented Psychiatric: Psychiatric: Reports no additional psychiatric complaints Endocrine: Endocrine: Reports no additional endocrine complaints Hematologic/Lymphatic: Hematologic/Lymphatic: Reports no additional hematologic/lymphatic complaints Allergic/Immunologic: Allergic/Immunologic: Reports no additional allergic/immunologic complaints PMFSH Past Medical History Medical History CMT (Befbtew-Wfwtp-Mbrpj disease) Family History Family History Mother Colon cancer Surgical History Surgical History Hx of section Hx of foot surgery Social History Social History Household Members: Spouse and Children Housing: House Do you presently have visiting nurse or other home services: No Alcohol intake: never Smoking Status: Never smoker Use of substances other than those prescribed or required for medical reasons: No Currently Displaying Signs/Symptoms of Drug Intoxication Withdrawal: No Have you been hit, kicked, punched, or otherwise hurt by someone within the past year? If so, by whom?: No Do you feel safe in your current relationship?: Yes Is there a partner from a previous relationship who is making you feel unsafe now?: No Are you made to feel afraid or neglected: No Advance Directives: No Advance Directives Information Provided: No Do you have thoughts of harming others: None Do you have a plan to hurt others: No Plan Recently lost weight without trying: No How much weight loss: Not applicable Eating poorly because of decreased appetite: No Nutrition screen score: 0 Nutrition Risks: No Nutritional Risk Patient : No : No Poor oral hygiene: No service: No Current occupational status: employed Sexual orientation: Straight/Heterosexual Gender identity: female Meds Allergies Allergy/AdvReac Type Severity Reaction Status Date / Time No Known Allergies Allergy Verified 06/23/20 15:32 Active Medications: Current Medications Generic Name Dose Route Start Last Admin Trade Name Freq PRN Reason Stop Dose Admin Acetaminophen 650 mg 11/26/20 17:36 Acetaminophen 325 Mg Tablet PO Q6H PRN Pain, Mild (Pain Scale 1-3) Enoxaparin Sodium 40 mg 11/26/20 18:00 11/26/20 21:37 Enoxaparin Sodium 40 Mg/0.4 Ml Syringe SUBCUT 40 mg Q24H TRENT Administration Metoprolol Tartrate 12.5 mg 11/26/20 21:00 11/27/20 10:20 Metoprolol Tartrate 12.5 Mg Halftab PO Not Given BID [facility] Protocol Pharmacy Consult 1 each 11/26/20 14:48 Consult Rx Perform Med Rec MISCELLANE ONCE PRN Consult order Sodium Chloride 3 ml 11/27/20 00:00 11/27/20 10:21 0.9 % Sodium Chloride Flush 3 Ml Syringe IVFLUSH 3 ml QSHIFT TRENT Administration Home Medications Medication Instructions Recorded Confirmed Last Taken Type No Known Home Meds 11/26/20 11/26/20 Unknown History Physical Exam Vital Signs: Vital Signs: Last Vital Signs Temp 97.2 F 11/27/20 07:32 Pulse 69 11/27/20 10:20 Resp 17 11/27/20 07:32 BP 106/68 11/27/20 10:20 Pulse Ox 98 11/27/20 07:32 Body Mass Index 25.2 Const: General: cooperative, comfortable, no acute distress, alert and awake Nutritional Appearance: average body habitus Orientation/consciousness: patient oriented x3 Limitations: no limitations HENMT: Head: Yes normocephalic and Yes atraumatic Neck: Neck: Yes trachea midline, Yes supple and Yes no JVD Chest: Chest palpation & inspection: normal inspection of the chest Resp: Effort & Inspection: normal respiratory effort Auscultation: clear to auscultation bilaterally Cardio: Jugular venous distension: no JVD Palpation: normal PMI Rate: regular rate Rhythm: regular rhythm Heart sounds: S1 normal heart sound present and S2 normal heart sound present GI: Auscultation: normal bowel sounds Skin: General skin exam: no rashes or lesions noted Neuro: General: patient oriented x3 and no focal motor deficits Extrem: General: Yes no clubbing, cyanosis or edema Psych: Appearance: grossly normal Results Labs and Meds Result diagrams: 11/27/20 05:43 11/27/20 05:43 Lab results: Laboratory Results - last 24 hr 11/26/20 11/26/20 11/26/20 16:14 16:14 16:14 WBC 6.2 RBC 4.75 Hgb 13.3 Hct 39.8 MCV 83.8 MCH 28.0 MCHC 33.4 RDW 13.5 Plt Count 253 MPV 10.2 Immature Gran % (Auto) 0.3 Neut % (Auto) 68.9 Lymph % (Auto) 21.8 [place] % (Auto) 7.1 Eos % (Auto) 1.3 Baso % (Auto) 0.6 Lymph # (Auto) 1.4 [place] # (Auto) 0.4 Eos # (Auto) 0.1 Baso # (Auto) 0.0 Abs Immat Gran (auto) 0.02 Absolute Neuts (auto) 4.3 Absolute Nucleated RBC 0.000 Nucleated RBC % (auto) 0.0 PT 13.4 H INR 1.1 D-Dimer Sodium Potassium Chloride Carbon Dioxide Anion Gap BUN Creatinine Estim Creat Clear Calc Estimated GFR Random Glucose Calcium Magnesium 1.9 Total Bilirubin AST ALT Alkaline Phosphatase Troponin I High Sens B-Natriuretic Peptide Total Protein Albumin TSH Beta HCG, Quant Urine Color Urine Appearance Urine pH Ur Specific [place] Urine Protein Urine Glucose (UA) Urine Ketones Urine Blood Urine Nitrite Ur Leukocyte Esterase Urine RBC Urine WBC Ur Squamous Epith Cells Urine Bacteria Ethyl Alcohol Coronavirus (PCR) Influenza Type A (PCR) Influenza Type B (PCR) RSV RNA Qual (PCR) 11/26/20 11/26/20 11/26/20 16:14 16:14 16:15 WBC RBC Hgb Hct MCV MCH MCHC RDW Plt Count MPV Immature Gran % (Auto) Neut % (Auto) Lymph % (Auto) [place] % (Auto) Eos % (Auto) Baso % (Auto) Lymph # (Auto) [place] # (Auto) Eos # (Auto) Baso # (Auto) Abs Immat Gran (auto) Absolute Neuts (auto) Absolute Nucleated RBC Nucleated RBC % (auto) PT INR D-Dimer Sodium 141 Potassium 3.8 Chloride 107 Carbon Dioxide 27 Anion Gap 11 L BUN 9 Creatinine 0.70 Estim Creat Clear Calc 101.3 Estimated GFR > 60 Random Glucose 91 Calcium 9.0 Magnesium Total Bilirubin 0.7 AST 17 ALT 13 Alkaline Phosphatase 78 Troponin I High Sens < 3.5 B-Natriuretic Peptide 47 Total Protein 7.6 Albumin 4.4 TSH Beta HCG, Quant Urine Color Urine Appearance Urine pH Ur Specific [place] Urine Protein Urine Glucose (UA) Urine Ketones Urine Blood Urine Nitrite Ur Leukocyte Esterase Urine RBC Urine WBC Ur Squamous Epith Cells Urine Bacteria Ethyl Alcohol Coronavirus (PCR) NEGATIVE Influenza Type A (PCR) NEGATIVE Influenza Type B (PCR) NEGATIVE RSV RNA Qual (PCR) NEGATIVE 11/26/20 11/26/20 11/26/20 16:15 16:15 16:15 WBC RBC Hgb Hct MCV MCH MCHC RDW Plt Count MPV Immature Gran % (Auto) Neut % (Auto) Lymph % (Auto) [place] % (Auto) Eos % (Auto) Baso % (Auto) Lymph # (Auto) [place] # (Auto) Eos # (Auto) Baso # (Auto) Abs Immat Gran (auto) Absolute Neuts (auto) Absolute Nucleated RBC Nucleated RBC % (auto) PT INR D-Dimer Sodium Potassium Chloride Carbon Dioxide Anion Gap BUN Creatinine Estim Creat Clear Calc Estimated GFR Random Glucose Calcium Magnesium Total Bilirubin AST ALT Alkaline Phosphatase Troponin I High Sens B-Natriuretic Peptide Total Protein Albumin TSH 1.05 Beta HCG, Quant < 2 Urine Color Urine Appearance Urine pH Ur Specific [place] Urine Protein Urine Glucose (UA) Urine Ketones Urine Blood Urine Nitrite Ur Leukocyte Esterase Urine RBC Urine WBC Ur Squamous Epith Cells Urine Bacteria Ethyl Alcohol < 10 Coronavirus (PCR) Influenza Type A (PCR) Influenza Type B (PCR) RSV RNA Qual (PCR) 11/26/20 11/26/20 11/27/20 16:16 17:38 05:43 WBC 5.4 RBC 4.42 Hgb 12.3 Hct 37.4 MCV 84.6 MCH 27.8 MCHC 32.9 RDW 13.6 Plt Count 227 MPV 10.4 Immature Gran % (Auto) 0.2 Neut % (Auto) 48.0 Lymph % (Auto) 33.7 [place] % (Auto) 11.5 H Eos % (Auto) 5.9 H Baso % (Auto) 0.7 Lymph # (Auto) 1.8 [place] # (Auto) 0.6 Eos # (Auto) 0.3 Baso # (Auto) 0.0 Abs Immat Gran (auto) 0.01 Absolute Neuts (auto) 2.6 Absolute Nucleated RBC 0.000 Nucleated RBC % (auto) 0.0 PT INR D-Dimer 255 Sodium Potassium Chloride Carbon Dioxide Anion Gap BUN Creatinine Estim Creat Clear Calc Estimated GFR Random Glucose Calcium Magnesium Total Bilirubin AST ALT Alkaline Phosphatase Troponin I High Sens B-Natriuretic Peptide Total Protein Albumin TSH Beta HCG, Quant Urine Color YELLOW Urine Appearance CLEAR Urine pH 7.0 Ur Specific [place] 1.015 Urine Protein NEG Urine Glucose (UA) NEG Urine Ketones 5 Urine Blood 2+ H Urine Nitrite NEG Ur Leukocyte Esterase 1+ H Urine RBC 0 Urine WBC 0-2 Ur Squamous Epith Cells 1+ Urine Bacteria TRACE Ethyl Alcohol Coronavirus (PCR) Influenza Type A (PCR) Influenza Type B (PCR) RSV RNA Qual (PCR) 11/27/20 05:43 WBC RBC Hgb Hct MCV MCH MCHC RDW Plt Count MPV Immature Gran % (Auto) Neut % (Auto) Lymph % (Auto) [place] % (Auto) Eos % (Auto) Baso % (Auto) Lymph # (Auto) [place] # (Auto) Eos # (Auto) Baso # (Auto) Abs Immat Gran (auto) Absolute Neuts (auto) Absolute Nucleated RBC Nucleated RBC % (auto) PT INR D-Dimer Sodium 142 Potassium 3.9 Chloride 108 Carbon Dioxide 28 Anion Gap 10 L BUN 12 Creatinine 0.75 Estim Creat Clear Calc 94.5 Estimated GFR > 60 Random Glucose 88 Calcium 9.0 Magnesium Total Bilirubin AST ALT Alkaline Phosphatase Troponin I High Sens B-Natriuretic Peptide Total Protein Albumin TSH Beta HCG, Quant Urine Color Urine Appearance Urine pH Ur Specific [place] Urine Protein Urine Glucose (UA) Urine Ketones Urine Blood Urine Nitrite Ur Leukocyte Esterase Urine RBC Urine WBC Ur Squamous Epith Cells Urine Bacteria Ethyl Alcohol Coronavirus (PCR) Influenza Type A (PCR) Influenza Type B (PCR) RSV RNA Qual (PCR) EKG shows normal sinus rhythm with T-wave changes in inferior leads. Imaging Radiologist's impression: Impressions Chest X-Ray 11/26/20 13:56 IMPRESSION: Unremarkable chest examination. Assessment and Plan (1) Paroxysmal atrial fibrillation: Status: Acute Highly symptomatic new onset paroxysmal atrial fibrillation in young woman with no cardiovascular risk factors are risk factors for atrial fibrillation. She has had no recent excessive use of stimulants or any change in her systemic health and would explain her new onset atrial fibrillation. TSH within normal limits. Echocardiogram shows within normal limits cardiac structure and function. She has frequent PACs. Most likely cause for atrial fibrillation is electrical abnormality related to extra systoles. Will start her on Toprol 25 mg daily and add flecainide 50 mg b.i.d. to her regimen to prevent recurrent atrial fibrillation and symptom improvement. She is at very low risk for thromboembolic complication does not need oral anticoagulation therapy. Avoidance of stimulants was discussed. Will follow up with outpatient stress testing given her EKG changes although unlikely that she has underlying coronary artery disease. Will obtain a stress echocardiogram. Follow-up Holter monitor. Follow up in the clinic in 2 weeks time. Thank you for allowing me to partake in her care.
[2020-11-27 11:28] VITALS: BP 112/70; PULSE 72; RESP 18; TEMP 36.7; O2SAT 98
--- NOTE | 2020-11-27 11:43 | P.DS_ITS ---
DS: Providers Provider Date of Service: 11/27/20 <NALINI Almanza - Last Filed: 11/27/20 11:48> 11/27/20 <Frandy Martnies MD - Last Filed: 11/28/20 13:36> Date of admission: 11/26/20 17:36 <NALINI Almanza - Last Filed: 11/27/20 11:48> Primary care physician: Joan Cottrell MD <NALINI Almanza - Last Filed: 11/27/20 11:48> Consults: 11/26/20 17:36 Consult to Cardiology Routine Consulting Provider: Neptali Nielosn Reason for consultation: AFIB RVR Has provider been notified: No <NALINI Almanza - Last Filed: 11/27/20 11:48> DS: Diagnosis Discharge Diagnosis (1) Paroxysmal atrial fibrillation: Status: Acute <NALINI Almanza - Last Filed: 11/27/20 11:48> DS: Medications Discharge Medications Home Medications: Previous Rx's Medication Instructions Recorded flecainide 50 mg PO Q12H 30 Days #60 tab 11/27/20 metoprolol succinate [Toprol XL] 50 mg PO DAILY 30 Days #30 tab 11/27/20 <NALINI Almanza - Last Filed: 11/27/20 11:48> DS: Summary Hospital Course Hospital Course: From H&P 40-year-old woman presented to the ER with complaints of worsening palpitations she reports they started around Tuesday. She was just feeling as if her heart was racing and it would come and go. She denied any symptoms of chest pain, shortness of breath, diaphoresis, nausea, vomiting, diarrhea, headache, visual changes, loss of consciousness. She denies any history of palpitations like this in past. She does not have any significant medical history, she takes no medications. She reported that on Tuesday she had 3 beers but usually only drinks maybe twice a month. She denied any heavily caffeinated items including coffee and caffeine drinks. She denied any drug use or tobacco use. She reported that her grandmother has a history of pacemaker but does not know the reason why. During the interview patient appeared to be sitting calmly in her bed and her heart rate would go from 60-150 within seconds. Chest x-ray is negative for consolidation. EKG showed normal sinus rhythm with nonspecific ST wave abnormalities. Labs all within acceptable limits. Blood pressure stable and the 120s to 130s systolic. In the ER she was given IV diltiazem, oral metoprolol, 1 L of IV fluid. She will be admitted for further management treatment of acute atrial fibrillation with rapid ventricular response. New onset atrial fibrillation: Patient was started on low dose lopressor. She was seen in consultation by cardiology. She has had no recent excessive use of stimulants or any change in her systemic health and would explain her new onset atrial fibrillation. TSH within normal limits. Echocardiogram shows within normal limits cardiac structure and function. She has frequent PACs. Most likely cause for atrial fibrillation is electrical abnormality related to extra systoles. Lopressor was changed to Toprol 25 mg daily and flecainide 50 mg b.i.d. was added per cardiology recommendation to prevent recurrent atrial fibrillation and symptom improvement. She is at very low risk for thromboembolic complication does not need oral anticoagulation therapy. Avoidance of stimulants was discussed. She should follow up with cardiology as outpatient for possible stress test, and holter monitor in 2 weeks. Attending Attestation: Patient seen and examined independently and I was present during gil portion of E/M service. Agree with NALINI Hernández's history, physical, assessment, and plan. <NALINI Almanza - Last Filed: 11/27/20 11:48> Time Spent with Patient Time attestation: Total time spent providing and/or coordinating discharge services: <NALINI Almanza - Last Filed: 11/27/20 11:48> Discharge coordination time: Greater than 30 minutes <NALINI Almanza - Last Filed: 11/27/20 11:48> Quality: Stroke Does the patient have a stroke diagnosis?: No <NALINI Almanza - Last Filed: 11/27/20 11:48> Physical Exam Vital Signs: Vital Signs: Last Vital Signs Temp 98.0 F 11/27/20 11:28 Pulse 72 11/27/20 11:28 Resp 18 11/27/20 11:28 BP 112/70 11/27/20 11:28 Pulse Ox 98 11/27/20 11:28 Body Mass Index 25.2 <NALINI Almanza - Last Filed: 11/27/20 11:48> Const: Nutritional Appearance: well nourished <NALINI Almanza - Last Filed: 11/27/20 11:48> Orientation/consciousness: patient oriented x3 <NALINI Almanza - Last Filed: 11/27/20 11:48> HENMT: Head: Yes normocephalic and Yes atraumatic <NALINI Almanza - Last Filed: 11/27/20 11:48> Eyes: Sclerae: sclerae normal <NALINI Almanza - Last Filed: 11/27/20 11:48> Chest: Chest palpation & inspection: normal inspection of the chest <NALINI Almanza - Last Filed: 11/27/20 11:48> Resp: Effort & Inspection: normal respiratory effort and no respiratory distress <NALINI Almanza - Last Filed: 11/27/20 11:48> Auscultation: clear to auscultation bilaterally <NALINI Almanza - Last Filed: 11/27/20 11:48> Cardio: Rate: regular rate <NALINI Almanza - Last Filed: 11/27/20 11:48> GI: Palpation (GI): Soft to palpation and nontender <NALINI Almanza - Last Filed: 11/27/20 11:48> Neuro: General: patient oriented x3 <NALINI Almanza - Last Filed: 11/27/20 11:48> Cranial nerves: Yes CN's II-XII intact bilaterally and Yes Bilaterally intact EOM present <NALINI Almanza - Last Filed: 11/27/20 11:48> DS: Data Data Completed and Pending Labs on day of discharge: Laboratory Results - last 24 hr 11/26/20 11/26/20 11/26/20 16:14 16:14 16:14 WBC 6.2 RBC 4.75 Hgb 13.3 Hct 39.8 MCV 83.8 MCH 28.0 MCHC 33.4 RDW 13.5 Plt Count 253 MPV 10.2 Immature Gran % (Auto) 0.3 Neut % (Auto) 68.9 Lymph % (Auto) 21.8 Humphreys % (Auto) 7.1 Eos % (Auto) 1.3 Baso % (Auto) 0.6 Lymph # (Auto) 1.4 Humphreys # (Auto) 0.4 Eos # (Auto) 0.1 Baso # (Auto) 0.0 Abs Immat Gran (auto) 0.02 Absolute Neuts (auto) 4.3 Absolute Nucleated RBC 0.000 Nucleated RBC % (auto) 0.0 PT 13.4 H INR 1.1 D-Dimer Sodium Potassium Chloride Carbon Dioxide Anion Gap BUN Creatinine Estim Creat Clear Calc Estimated GFR Random Glucose Calcium Magnesium 1.9 Total Bilirubin AST ALT Alkaline Phosphatase Troponin I High Sens B-Natriuretic Peptide Total Protein Albumin TSH Beta HCG, Quant Urine Color Urine Appearance Urine pH Ur Specific Gila Urine Protein Urine Glucose (UA) Urine Ketones Urine Blood Urine Nitrite Ur Leukocyte Esterase Urine RBC Urine WBC Ur Squamous Epith Cells Urine Bacteria Ethyl Alcohol Coronavirus (PCR) Influenza Type A (PCR) Influenza Type B (PCR) RSV RNA Qual (PCR) 11/26/20 11/26/20 11/26/20 16:14 16:14 16:15 WBC RBC Hgb Hct MCV MCH MCHC RDW Plt Count MPV Immature Gran % (Auto) Neut % (Auto) Lymph % (Auto) Humphreys % (Auto) Eos % (Auto) Baso % (Auto) Lymph # (Auto) Humphreys # (Auto) Eos # (Auto) Baso # (Auto) Abs Immat Gran (auto) Absolute Neuts (auto) Absolute Nucleated RBC Nucleated RBC % (auto) PT INR D-Dimer Sodium 141 Potassium 3.8 Chloride 107 Carbon Dioxide 27 Anion Gap 11 L BUN 9 Creatinine 0.70 Estim Creat Clear Calc 101.3 Estimated GFR > 60 Random Glucose 91 Calcium 9.0 Magnesium Total Bilirubin 0.7 AST 17 ALT 13 Alkaline Phosphatase 78 Troponin I High Sens < 3.5 B-Natriuretic Peptide 47 Total Protein 7.6 Albumin 4.4 TSH Beta HCG, Quant Urine Color Urine Appearance Urine pH Ur Specific Gila Urine Protein Urine Glucose (UA) Urine Ketones Urine Blood Urine Nitrite Ur Leukocyte Esterase Urine RBC Urine WBC Ur Squamous Epith Cells Urine Bacteria Ethyl Alcohol Coronavirus (PCR) NEGATIVE Influenza Type A (PCR) NEGATIVE Influenza Type B (PCR) NEGATIVE RSV RNA Qual (PCR) NEGATIVE 11/26/20 11/26/20 11/26/20 16:15 16:15 16:15 WBC RBC Hgb Hct MCV MCH MCHC RDW Plt Count MPV Immature Gran % (Auto) Neut % (Auto) Lymph % (Auto) Humphreys % (Auto) Eos % (Auto) Baso % (Auto) Lymph # (Auto) Humphreys # (Auto) Eos # (Auto) Baso # (Auto) Abs Immat Gran (auto) Absolute Neuts (auto) Absolute Nucleated RBC Nucleated RBC % (auto) PT INR D-Dimer Sodium Potassium Chloride Carbon Dioxide Anion Gap BUN Creatinine Estim Creat Clear Calc Estimated GFR Random Glucose Calcium Magnesium Total Bilirubin AST ALT Alkaline Phosphatase Troponin I High Sens B-Natriuretic Peptide Total Protein Albumin TSH 1.05 Beta HCG, Quant < 2 Urine Color Urine Appearance Urine pH Ur Specific Gila Urine Protein Urine Glucose (UA) Urine Ketones Urine Blood Urine Nitrite Ur Leukocyte Esterase Urine RBC Urine WBC Ur Squamous Epith Cells Urine Bacteria Ethyl Alcohol < 10 Coronavirus (PCR) Influenza Type A (PCR) Influenza Type B (PCR) RSV RNA Qual (PCR) 11/26/20 11/26/20 11/27/20 16:16 17:38 05:43 WBC 5.4 RBC 4.42 Hgb 12.3 Hct 37.4 MCV 84.6 MCH 27.8 MCHC 32.9 RDW 13.6 Plt Count 227 MPV 10.4 Immature Gran % (Auto) 0.2 Neut % (Auto) 48.0 Lymph % (Auto) 33.7 Humphreys % (Auto) 11.5 H Eos % (Auto) 5.9 H Baso % (Auto) 0.7 Lymph # (Auto) 1.8 Humphreys # (Auto) 0.6 Eos # (Auto) 0.3 Baso # (Auto) 0.0 Abs Immat Gran (auto) 0.01 Absolute Neuts (auto) 2.6 Absolute Nucleated RBC 0.000 Nucleated RBC % (auto) 0.0 PT INR D-Dimer 255 Sodium Potassium Chloride Carbon Dioxide Anion Gap BUN Creatinine Estim Creat Clear Calc Estimated GFR Random Glucose Calcium Magnesium Total Bilirubin AST ALT Alkaline Phosphatase Troponin I High Sens B-Natriuretic Peptide Total Protein Albumin TSH Beta HCG, Quant Urine Color YELLOW Urine Appearance CLEAR Urine pH 7.0 Ur Specific Gila 1.015 Urine Protein NEG Urine Glucose (UA) NEG Urine Ketones 5 Urine Blood 2+ H Urine Nitrite NEG Ur Leukocyte Esterase 1+ H Urine RBC 0 Urine WBC 0-2 Ur Squamous Epith Cells 1+ Urine Bacteria TRACE Ethyl Alcohol Coronavirus (PCR) Influenza Type A (PCR) Influenza Type B (PCR) RSV RNA Qual (PCR) 11/27/20 05:43 WBC RBC Hgb Hct MCV MCH MCHC RDW Plt Count MPV Immature Gran % (Auto) Neut % (Auto) Lymph % (Auto) Humphreys % (Auto) Eos % (Auto) Baso % (Auto) Lymph # (Auto) Humphreys # (Auto) Eos # (Auto) Baso # (Auto) Abs Immat Gran (auto) Absolute Neuts (auto) Absolute Nucleated RBC Nucleated RBC % (auto) PT INR D-Dimer Sodium 142 Potassium 3.9 Chloride 108 Carbon Dioxide 28 Anion Gap 10 L BUN 12 Creatinine 0.75 Estim Creat Clear Calc 94.5 Estimated GFR > 60 Random Glucose 88 Calcium 9.0 Magnesium Total Bilirubin AST ALT Alkaline Phosphatase Troponin I High Sens B-Natriuretic Peptide Total Protein Albumin TSH Beta HCG, Quant Urine Color Urine Appearance Urine pH Ur Specific Gila Urine Protein Urine Glucose (UA) Urine Ketones Urine Blood Urine Nitrite Ur Leukocyte Esterase Urine RBC Urine WBC Ur Squamous Epith Cells Urine Bacteria Ethyl Alcohol Coronavirus (PCR) Influenza Type A (PCR) Influenza Type B (PCR) RSV RNA Qual (PCR) <NALINI Almanza - Last Filed: 11/27/20 11:48> Discharge Plan Discharge Patient Disposition: Home, Self-Care <NALINI Almanza - Last Filed: 11/27/20 11:48> Discharge Diagnosis: New onset Atrial fibrillation <NALINI Almanza - Last Filed: 11/27/20 11:48> New onset Atrial fibrillation <Frandy Martines MD - Last Filed: 11/28/20 13:36> Referrals: Joan Cottrell MD [Primary Care Provider] - 1 Week Herman Hopkins MD [Physician] - 1 Week <NALINI Almanza - Last Filed: 11/27/20 11:48> Discharge Medications: New metoprolol succinate [Toprol XL] 50 mg tablet extended release 24 hr 50 mg PO DAILY 30 Days Qty: 30 RF: 0 flecainide 50 mg tablet 50 mg PO Q12H 30 Days Qty: 60 RF: 0 <NALINI Almanza - Last Filed: 11/27/20 11:48> Discharge Orders: Discharge Order (Routine); Ordered 11/27/20 Ordered By: Becky Ashley <NALINI Almanza - Last Filed: 11/27/20 11:48> Activity on Discharge: As tolerated <NALINI Almanza - Last Filed: 11/27/20 11:48> As tolerated <Frandy Martines MD - Last Filed: 11/28/20 13:36> Stand Alone Forms: Patient Portal Discharge page <NALINI Almanza - Last Filed: 11/27/20 11:48> Care Plan Goals: see below <NALINI Almanza - Last Filed: 11/27/20 11:48> Health Concerns: new onset atrial fibrillation <NALINI Almanza - Last Filed: 11/27/20 11:48> Plan of Treatment: New onset atrial fibrillation. You have been started on 2 new medications, please take as directed. Avoid stimulants. Follow up with cardiology in office. <NALINI Almanza - Last Filed: 11/27/20 11:48> Assessment: See discharge summary <NALINI Almanza - Last Filed: 11/27/20 11:48> Discharge Date/Time: 11/27/20 13:53 <NALINI Almanza - Last Filed: 11/27/20 11:48>
--- NOTE | 2020-11-27 11:54 | MHC.CM.PN ---
Patient has been medically cleared for dc to home today, no services.
[2020-11-27 13:33] VITALS: BP 114/59; PULSE 70
[2020-11-27] MEDS: Flecainide Acetate 50 MG TABLET PO (13:33)
--- NOTE | 2020-11-27 14:47 | CA_ITS ---
Transthoracic Echocardiogram Patient (Last, First, Middle): Abril Pruitt J Gender: Female Date of : 1980 Age: 40 Procedure Date: 11/27/2020 Procedure Type: Transthoracic Echocardiogram Location: [facility] [place] Height: 162.56 cm Weight: 66.68 kg BSA: 1.72 m2 Heart Rate: bpm BP: 99 / 56 mmHg Field Contact Person: MUNIRA Laureano MD: Lizzie GAYLE [employer] Blacksmith: Herman Hopkins MD Symptoms: New onset atrial fibrillation Study Quality: Fair ECG Rhythm: Sinus Conclusions: - Essentially normal study Findings Left Ventricle Normal left ventricular size, thickness, and systolic function. The visually estimated ejection fraction is between 60-65%. Diastolic function is normal for age. Right Ventricle Normal right ventricular cavity size and systolic function. Atria Both atria are normal in size. There is no evidence of interatrial shunt. Aortic Valve The aortic valve structure and function is likely normal. There is no aortic valve stenosis. There is no aortic valve regurgitation. Mitral Valve Normal mitral valve structure and function. There is trace mitral valve regurgitation. There is no mitral valve stenosis. Pulmonic Valve The pulmonic valve is likely normal. Tricuspid Valve Normal tricuspid valve structure. There is trace tricuspid valve regurgitation. The right ventricular systolic pressure is normal. Normal right atrial pressure. There is no evidence of pulmonary hypertension. Great Vessels All visible segments of the aorta are normal in size. The pulmonary artery was not well visualized. Venous The inferior vena cava is normal in size and collapses greater than 50% with inspiration. Pericardium/Pleural There is no evidence of pericardial effusion. Prior Study Comparison No prior study available for comparison. Measurements 2D Linear Measurements IVSd: 0.80 0.6-0.9/0.6-1.0 cm LVIDd: 4.22 3.9-5.3/4.2-5.9 cm LVIDd Index: 2.45 2.4-3.2/2.2-3.1 cm/m2 LVIDs: 3.05 2.0-3.6 cm LVPWd: 0.74 0.7-1.1 cm Ao Root: 2.80 2.1-3.5 cm LA Diam: 2.60 2.7-3.8/3.0-4.0 cm LAIDs Index: 1.51 1.5-2.3 cm/m2 LV Mass: 120.90 67-162/88-224 g LV Mass Index: 70.29 43-95/49-115 g/m2 LVOT Diam: 2.00 3.0+(-)1.3 cm 2D Systolic Function EF 4C: 58.30 >55% EF 2C: 65.90 >55% EF BiP: 62.20 >55% Mitral Valve MV Pk E: 0.98 MV PK A: 0.62 MV Decel Time: 257.00 E/A: 1.60 E'Lateral: 11.70 E'Medial: 10.00 E/E' Med: 9.80 E/E' Lat: 8.40 PHT: 75.00 MVA PHT: 2.93 Decel Taliaferro: 3.81 Aortic Valve AoV Pk Cipriano: 1.13 AoV Mn Cipriano: 0.85 AoV VTI: 0.29 AoV Pk Grad: 5.00 Aov Mn Grad: 3.00 GAYATHRI Cont.VTI: 2.24 LVOT LVOT Pk Cipriano: 0.94 LVOT Mn Cipriano: 0.64 LVOT VTI: 0.21 LVOT Pk Grad: 4.00 LVOT Mn Grad: 2.00 LVOT Diam: 2.00 LVOT Area: 3.14 Diastolic Function MV Pk E: 0.98 MV Pk A: 0.62 E/A: 1.60 E'Medial: 10.00 E/E' Med: 9.80 E' Laterial: 11.70 E/E' Lat: 8.40 Tricuspid Valve TR Pk Cipriano: 1.74 TR Pk Grad: 12.00 RA Press: 3.00 RVSP: 15.00 Great Vessels Aorta Ao Root-2D: 2.80 2.0-3.7 cm Ao Asc: 2.50 2.1-3.4 cm Ao Arch: 2.60 Updated in Other Vendor System with Status of Final Herman Hopkins MD electronically signed on 11/27/2020 10:52:52 AM with status of Final
== END 2020-11-27 13:53 | disposition home or self-care (01) | DRG 201 ==
LOC: HO.ED 16:22 → HO.IMC 17:51
PROVIDERS: Nurse Practitioner Acute Care; Physician Assistant Medical; Admitting Provider Internal Medicine; Emergency Provider Emergency Medicine Emergency Medical Services; PCP Internal Medicine; Visit Provider Family Medicine
DX: I48.0 Paroxysmal atrial fibrillation (principal); Z20.822 Contact with and (suspected) exposure to COVID-19; Z79.899 Other long term (current) drug therapy
CPT/HCPCS: 0241U; 36415; 71046; 80048; 80053; 80320; 81001; 81003; 83735; 83880; 84443; 84484; 84702; 85025; 85379; 85610; 87086; 87147; 93005; 93306; 96374; 99285; 99291; J1650

== ENCOUNTER → 2020-12-11 13:21 | Outpatient (REF) | payer OTHER, SELFPAY ==
--- NOTE | 2020-12-11 13:33 | ECG_ITS ---
Hook-up date: 2020-12-11 13:45:00 Duration: 21:20:00 Test Indications: i48.0 Medications: 72075 QRS complexes * Ventricular ectopics which represent % of total QRS comp. 1 Supraventricular ectopics which represent <1 % of total QRS comp. * Paced QRS complexs which represent % of total QRS comp. VENTRICULAR ECTOPY * Isolated * Bigeminal Cycles * Couplets * Runs * Beats in Runs * Beats LONGEST at * BPM at :: -- * Beats FASTEST at * BPM at :: -- SUPRAVENTRICULAR ECTOPY 1 Isolated 0 Couplets 0 Runs 0 Beats in Runs * Beats LONGEST at * BPM at :: -- * Beats FASTEST at * BPM at :: -- HEART RATES 48 MIN at 01:15:31 2020-12-12 56 AVG 103 MAX at 10:39:09 2020-12-12 LONGEST RR 1.7280 secs at 04:47:48 2020-12-12 S-T LEVELS Channel 1 - 128 mm at 13:45:00 2020-12-11 - 128 mm at 13:45:00 2020-12-11 Channel 2 - 128 mm at 13:45:00 2020-12-11 - 128 mm at 13:45:00 2020-12-11 Channel 3 - 128 mm at 03:30:41 -- - 128 mm at 03:30:41 Underlying rhythm is sinus; Average ventricular rate 56/min; No significant ectopy, tachy or bradyarrhythmias; Patient diary not available for review. Referred By: Herman Hopkins Overread By: CONSUELO COLE
--- NOTE | 2020-12-12 14:16 | CA_ITS ---
Acquisition Time: 2020-12-12 10:50:03 Total Exercise Time: 00:09:00 Test Indications: Abnormal ECG Medications: METOPROLOL FLECAINIDE Protocol: NATE Max HR: 157 BPM 86% of Pred: 181 BPM Max BP: 128/074 mmHG Max Work Load: 10.1 METS Exercise stress test with exercise 9 min of Nate protocol acheiving 86% MPHR with request to stop due to leg fatigue, without anginal symptoms, without arrythmia, with normotensive response to exercise, without EKG changes meeting criteria for ischemia during exercise, with T wave inversion leads III, V3 at baseline and then in recovery with T wave inversion leads II, III, aVF, V3-V6 which gradually improved to near baseline, asymptomatic. Echo images obtained by [employer] at rest and immediately post peak exercise. Definity contrast used. Test reviewed with Dr Wills. Referred By: Herman Hopkins Overread By: CLOTILDE SMITH
== END ==
LOC: HO.CARD 13:21
PROVIDERS: Visit Provider Internal Medicine Cardiovascular Disease
DX: I48.0 Paroxysmal atrial fibrillation (principal)
CPT/HCPCS: 93225; 93226; 93350

== ENCOUNTER → 2020-12-12 10:41 | Outpatient (REF) | payer OTHER, SELFPAY | LOC: HO.CARD 10:41 | PROVIDERS: Visit Provider Internal Medicine Cardiovascular Disease | DX: I48.0 Paroxysmal atrial fibrillation (principal) | CPT/HCPCS: Q9957 ==

== ENCOUNTER → 2020-12-18 08:24 | Outpatient (BNVA) | payer OTHER, SELFPAY | PROVIDERS: PCP Internal Medicine; Visit Provider Internal Medicine Cardiovascular Disease | DX: I48.0 Paroxysmal atrial fibrillation (principal) | CPT/HCPCS: 93005 ==

== ENCOUNTER 2021-03-16 14:02 | Outpatient (REF) | payer OTHER, SELFPAY | END 2021-03-16 14:03 | disposition home or self-care (01) | LOC: HO.LNP 14:02 | PROVIDERS: Visit Provider Hospitalist | DX: R30.0 Dysuria (principal) | CPT/HCPCS: 87086; 87088; 87186 ==

== ENCOUNTER → 2021-04-02 08:41 | Outpatient (BNVA) | payer OTHER, SELFPAY | PROVIDERS: PCP Internal Medicine; Visit Provider Internal Medicine Cardiovascular Disease | DX: I48.0 Paroxysmal atrial fibrillation (principal); I49.1 Atrial premature depolarization; G60.0 Hereditary motor and sensory neuropathy | CPT/HCPCS: 93005 ==

== ENCOUNTER 2021-04-04 08:30 | Outpatient (REF) | payer OTHER, SELFPAY ==
--- NOTE | ~2021-04-04 | MM_ITS ---
EXAMINATION: MM SCREENING DIGITAL BREAST TOMOSYNTHESIS, BILATERAL CLINICAL INFORMATION: Screening. Asymptomatic. The lifetime risk of breast cancer based on the Tyrer-Cuzick Model is 11.3%. COMPARISON: Mammography: None TECHNIQUE: Digital breast tomosynthesis is performed in both the craniocaudal and mediolateral oblique views along with computer-aided detection (CAD). Synthesized 2D images are generated from the tomosynthesis. Additional left breast exaggerated craniocaudal view performed. FINDINGS: The breasts are extremely dense, which lowers the sensitivity of mammography (ACR BI-RADS breast composition Category d). There are innumerable calcifications seen bilaterally, some of which appear to layer to some degree on mediolateral oblique studies. Spot magnification views in 90-degree mediolateral projection recommended. There is question of a circumscribed 3 cm density about the medial aspect of the left breast, lying approximately 4.5 cm from the nipple as well as a second density about the inferomedial aspect of the left breast measuring 8 mm in diameter, lying approximately 2 cm from the nipple. Spot compression views are recommended and if there is persistence of density then ultrasound could be performed at that time. MM/MM tomosynthesis screening BI IMPRESSION: Multiplicity and bilaterality of calcifications for which 90-degree mediolateral views are recommended. Question 2 left breast densities for further evaluation with spot compression view and targeted ultrasound if these are persistent. ASSESSMENT: BI-RADS 0: Incomplete - Need Additional Imaging Evaluation RECOMMENDATION: 1. Additional views of the bilateral breasts. 2. Targeted ultrasound if warranted after review of the additional views. 3. Radiology department staff will contact the patient for additional imaging. This patient's information was entered into a reminder system with a target due date for their next mammogram.
== END 2021-04-04 08:31 | disposition home or self-care (01) ==
LOC: HO.MAMMO 08:30
PROVIDERS: Visit Provider Internal Medicine
DX: Z12.31 Encounter for screening mammogram for malignant neoplasm of breast (principal)
CPT/HCPCS: 77063; 77067

== ENCOUNTER 2021-04-22 14:29 | Outpatient (REF) | payer OTHER, SELFPAY ==
--- NOTE | ~2021-04-22 | US_ITS ---
EXAMINATION: MM DIAGNOSTIC DIGITAL MAMMOGRAPHY, BILATERAL US DIAGNOSTIC ULTRASOUND BREAST, LEFT CLINICAL INFORMATION: Recall from baseline screening exam for bilateral calcifications and smooth partly obscured nodules anterior 7:00 and posterior 9:00 left breast. No known family history breast cancer. TC score 11%. COMPARISON: Baseline screening 04/04/2021 TECHNIQUE: Digital mammography is performed in the following views: Bilateral magnification CC x2, magnification right ML, magnification left ML x2. Ultrasound left breast is targeted to the 2 areas of clinical concern anterior 7:00 position and posterior 9:00 position. Grayscale imaging and color Doppler are performed without and with harmonics. FINDINGS: The breasts are extremely dense, which lowers the sensitivity of mammography (ACR BI-RADS breast composition Category d). The additional magnification views show diffuse innumerable bilateral randomly distributed round calcifications of variable size. Many calcifications demonstrate layering on the ML views. There is no ductal distribution or focal grouping with pleomorphic types. The bilateral symmetry is also consistent with benign pattern. Ultrasound left breast demonstrates simple cyst 7:00 position 2 cm from nipple corresponding to the nodule on tomography measuring approximately 0.9 x 0.6 cm. There is a larger simple cyst 9:00 position 5 cm from nipple also consistent with the tomography and measuring approximately 3.7 x 1.2 x 2.7 cm. Results are discussed with the patient at time of visit. US/US breast LT limited IMPRESSION: 1. Innumerable bilateral symmetric randomly distributed calcifications, many showing layering of milk of calcium. No focal suspicious grouping or pleomorphic types or ductal distribution. 2. Simple cysts left breast at anterior 7:00 and posterior 9:00 position corresponding to the nodularity on mammography. ASSESSMENT: BI-RADS 2: Benign RECOMMENDATION: Routine annual mammography screening. This patient's information was entered into a reminder system with a target due date for their next mammogram.
== END 2021-04-22 14:30 | disposition home or self-care (01) ==
LOC: HO.MAMMO 14:29
PROVIDERS: Visit Provider Internal Medicine
DX: R92.8 Other abnormal and inconclusive findings on diagnostic imaging of breast (principal)
CPT/HCPCS: 76642; 77066

== ENCOUNTER 2021-07-06 13:31 | Outpatient (REF) | payer OTHER, SELFPAY ==
[2021-07-07 09:33] LABS: BV Int Neg Control Negative (Negative); BV Int Pos Control Positive (Positive)
== END 2021-07-06 13:32 | disposition home or self-care (01) ==
LOC: HO.LAB 13:31
PROVIDERS: PCP Internal Medicine; Visit Provider Advanced Practice Midwife
DX: Z01.419 Encounter for gynecological examination (general) (routine) without abnormal findings (principal); N89.8 Other specified noninflammatory disorders of vagina; G60.0 Hereditary motor and sensory neuropathy
CPT/HCPCS: 87480; 87510; 87660

== ENCOUNTER 2021-09-17 07:31 | Outpatient (REF) | payer OTHER, SELFPAY ==
[2021-09-17 08:35] LABS: COVID-19 Test Negative (Negative)
== END 2021-09-17 07:32 | disposition home or self-care (01) ==
LOC: HO.LAB 07:31
PROVIDERS: Visit Provider Internal Medicine
DX: Z20.822 Contact with and (suspected) exposure to COVID-19 (principal)
CPT/HCPCS: 87635; C9803

== ENCOUNTER → 2021-10-05 08:42 | Outpatient (BNVA) | payer OTHER, SELFPAY | PROVIDERS: PCP Internal Medicine; Visit Provider Internal Medicine Cardiovascular Disease | DX: I48.0 Paroxysmal atrial fibrillation (principal) | CPT/HCPCS: 93005 ==

== ENCOUNTER 2021-11-28 09:14 | Outpatient (REF) | payer OTHER, SELFPAY ==
[2021-11-28 10:46] LABS: Alanine Aminotransferase 13 U/L (0-31); Albumin Level 4.1 g/dL (3.5-5.0); Alkaline Phosphatase 73 U/L (39-117); Anion Gap 11 (12-20); Aspartate Amino Transferase 17 U/L (5-31); Bilirubin Direct 0.3 mg/dL (0.0-0.5); Blood Urea Nitrogen 14 mg/dL (9-16); Calcium 9.3 mg/dL (8.4-10.2); Carbon Dioxide 28 mmol/L (22-29); Chloride 105 mmol/L (96-108); Estimated Glomerular Filt Rate > 60; Glucose Random 84 mg/dL (60-115); Magnesium 2.2 mg/dL (1.6-2.6); Sodium 140 mmol/L (135-145); Total Protein 7.1 g/dL (6.5-8.0)
== END 2021-11-28 09:15 | disposition home or self-care (01) ==
LOC: HO.LAB 09:14
PROVIDERS: PCP Internal Medicine; Visit Provider Internal Medicine Cardiovascular Disease
DX: I48.0 Paroxysmal atrial fibrillation (principal); I50.30 Unspecified diastolic (congestive) heart failure; Z79.899 Other long term (current) drug therapy
CPT/HCPCS: 36415; 80048; 80076; 80181; 83735

== ENCOUNTER 2022-02-03 10:50 | Outpatient (REF) | payer OTHER, SELFPAY ==
[2022-02-03 11:25] LABS: COVID-19 Test Negative (Negative)
== END 2022-02-03 10:51 | disposition home or self-care (01) ==
LOC: HO.LAB 10:50
PROVIDERS: Visit Provider Internal Medicine
DX: Z20.822 Contact with and (suspected) exposure to COVID-19 (principal)
CPT/HCPCS: 87635; C9803

== ENCOUNTER 2022-04-07 07:27 | Outpatient (REF) | payer OTHER, SELFPAY ==
[2022-04-07 08:45] LABS: COVID-19 Test Positive (Negative); IDNOW Serial# 9DB6401D
== END 2022-04-07 07:28 | disposition home or self-care (01) ==
LOC: HO.LAB 07:27
PROVIDERS: Visit Provider Internal Medicine
DX: Z20.822 Contact with and (suspected) exposure to COVID-19 (principal)
CPT/HCPCS: 87635; C9803

== ENCOUNTER 2022-04-17 08:30 | Outpatient (REF) | payer OTHER, SELFPAY ==
--- NOTE | ~2022-04-17 | MM_ITS ---
EXAMINATION: MM SCREENING DIGITAL BREAST TOMOSYNTHESIS, BILATERAL CLINICAL INFORMATION: Screening. Asymptomatic. The lifetime risk of breast cancer based on the Tyrer-Cuzick Model is 11%. COMPARISON: Mammography: 04/22/2021, 04/04/2021 (baseline); left breast ultrasound 04/22/2021. TECHNIQUE: Digital breast tomosynthesis is performed in both the craniocaudal and mediolateral oblique views along with computer-aided detection (CAD). Synthesized 2D images are generated from the tomosynthesis. FINDINGS: The breasts are extremely dense, which lowers the sensitivity of mammography (ACR BI-RADS breast composition Category d). No significant mass or architectural abnormality. Numerous bilateral calcifications are again seen, some with layering on the MLO views. Parenchymal pattern is similar to prior exams. The axilla and skin contours are unremarkable. No significant changes. MM/MM tomosynthesis screening BI IMPRESSION: No mammographic evidence of malignancy. ASSESSMENT: BI-RADS 2: Benign RECOMMENDATION: Routine annual mammography screening. This patient's information was entered into a reminder system with a target due date for their next mammogram.
== END 2022-04-17 08:31 | disposition home or self-care (01) ==
LOC: HO.MAMMO 08:30
PROVIDERS: Visit Provider Internal Medicine
DX: Z12.31 Encounter for screening mammogram for malignant neoplasm of breast (principal)
CPT/HCPCS: 77063; 77067

== ENCOUNTER → 2022-04-20 13:14 | Outpatient (BNVA) | payer OTHER, SELFPAY | PROVIDERS: PCP Internal Medicine; Visit Provider Internal Medicine Cardiovascular Disease | DX: I48.0 Paroxysmal atrial fibrillation (principal) | CPT/HCPCS: 93005 ==

== ENCOUNTER 2022-07-28 08:32 | Outpatient (REF) | payer OTHER, SELFPAY ==
[2022-08-03 16:29] LABS: HPV mRNA E6/E7 rflx Not Detected (Not Detected)
== END 2022-07-28 08:33 | disposition home or self-care (01) ==
LOC: HO.LNP 08:32
PROVIDERS: PCP Internal Medicine; Visit Provider Advanced Practice Midwife
DX: Z01.419 Encounter for gynecological examination (general) (routine) without abnormal findings (principal); Z11.51 Encounter for screening for human papillomavirus (HPV)
CPT/HCPCS: 87624; 88142

== ENCOUNTER 2022-08-02 10:55 | Outpatient (REF) | payer OTHER, SELFPAY ==
--- NOTE | ~2022-08-02 | MM_ITS ---
EXAMINATION: MM DIAGNOSTIC DIGITAL BREAST TOMOSYNTHESIS, LEFT US DIAGNOSTIC ULTRASOUND BREAST, LEFT CLINICAL INFORMATION: Increased fullness posterior medial left breast on routine clinical exam. Prior history dominant cyst. The lifetime risk of breast cancer based on the Tyrer-Cuzick Model is 11%. COMPARISON: Mammography: 04/17/2022, 04/22/2021, 04/04/2021 (baseline, BI-RADS 0), ultrasound left breast 04/22/2021. TECHNIQUE: Digital breast tomosynthesis is performed in both the craniocaudal and mediolateral oblique views along with computer-aided detection (CAD). Synthesized 2D images are generated from the tomosynthesis. Additional exaggerated CC view is provided. Ultrasound left breast is targeted to the area of clinical concern posterior medial breast. Grayscale imaging and color Doppler are performed without and with harmonics. FINDINGS: The breasts are extremely dense, which lowers the sensitivity of mammography (ACR BI-RADS breast composition Category d). Parenchymal pattern is similar to prior studies. There is fibrocystic change again seen posterior medial breast and innumerable chronic calcifications throughout the breast as previously noted. There is no interval significant mass or architectural abnormality. The axilla and skin contours are unremarkable. Ultrasound demonstrates macrolobulated simple cyst posterior medial left breast corresponding to the previously noted cyst on ultrasound 04/22/2021. Current dimensions are 4.2 x 2.3 x 3.6 cm. Prior dimensions are 3.7 x 1.2 x 2.7 cm. There is no new cystic or solid mass or architectural abnormality in the targeted area. Results are discussed with the patient at time of visit. MM/MM tomosynthesis diagnostic LT IMPRESSION: -Dominant simple cyst posterior medial left breast, increased in size. -Current measurements 4.2 x 2.3 x 3.6 cm. Prior measurements 3.7 x 1.2 x 2.7 cm. ASSESSMENT: BI-RADS 2: Benign RECOMMENDATION: Routine annual mammography screening. This patient's information was entered into a reminder system with a target due date for their next mammogram.
== END 2022-08-02 10:56 | disposition home or self-care (01) ==
LOC: HO.MAMMO 10:55
PROVIDERS: PCP Internal Medicine; Visit Provider Advanced Practice Midwife
DX: N63.25 Unspecified lump in the left breast, overlapping quadrants (principal)
CPT/HCPCS: 76642; 77061; 77065

== ENCOUNTER → 2022-10-26 14:55 | Outpatient (BNVA) | payer OTHER, SELFPAY | PROVIDERS: PCP Internal Medicine; Visit Provider Internal Medicine Cardiovascular Disease | DX: Z86.79 Personal history of other diseases of the circulatory system (principal) | CPT/HCPCS: 93005 ==

== ENCOUNTER 2023-04-07 12:19 | Outpatient (AMB) | payer OTHER, SELFPAY ==
--- NOTE | 2023-04-07 12:59 | AM.OFFWIN_ITS ---
Intake Vital Signs 04/07/23 13:04 Height 5 ft 4 in Weight 143 lb 5 oz BMI 24.6 BP 130/70 Blood Pressure Location Rt brachial Position Sitting Pulse 66 Pulse Source Pulse Oximeter Temp 98.4 F Temp Source Oral Pulse Oximetry (%) 99 Oxygen Delivery Method Room Air Intake Visit Reasons: EST/Ear infection/[id number] Intake Note: Patient here for left ear infection which has been present for about 2 days. Patient Tobacco Use Status: Never used Tobacco Allergies No Known Allergies Allergy (Verified 04/07/23 12:59) Do you need a note to return to daycare/school/sports/work: No HPI HPI Comments History of Present Illness Details The patient presents to urgent care for evaluation of left ear pain x2 days. 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[place] Sexual orientation: Straight/Heterosexual Gender identity: Female Female Reproductive History Menstrual Age of Menarche: 17 Review of Systems Const Denies headache(s) ENT Reports no additional complaints and Denies headache(s) Card Reports no additional complaints Musc Denies numbness Skin/Breast Denies skin pain, Denies skin swelling and Denies unusual bruising Neuro Denies headache(s), Denies focal weakness and Denies numbness Physical Exam Vital Signs: Last Vital Signs Temp 98.4 F 04/07/23 13:04 Pulse 66 04/07/23 13:04 BP 130/70 04/07/23 13:04 Pulse Ox 99 04/07/23 13:04 Oxygen Delivery Method Room Air 04/07/23 13:04 BMI result Body Mass Index 24.6 Const General: healthy appearing and no acute distress Orientation/consciousness: patient oriented x3 HEENT Other: Left ear canal occluded with cerumen right ear canal unremarkable TM unremarkable Neuro General: patient oriented x3 Assessment & Plan Assessment & Plan (1) Impacted cerumen of left ear: Code(s): H61.22 - Impacted cerumen, left ear Plan The patient presents for evaluation of decreased hearing and cerumen impaction. Hydrogen peroxide was instilled in the ear and the ear was subsequently irrigated with warm water. The impaction was removed well. Patient tolerated the procedure well. Hearing is improved. There is no infection noted. TMs intact and normal. The patient will follow up with her PCP or return as needed. Coding Level of Care Code Est Pt Level 3 (97144) Diagnoses Impacted cerumen of left ear H61.22
[2023-04-07 13:04] VITALS: BP 130/70; PULSE 66; TEMP 36.9; O2SAT 99; BMI 24.6
== END 2023-04-07 14:03 | disposition home or self-care (01) ==
PROVIDERS: PCP Internal Medicine; Visit Provider Emergency Medicine
DX: H61.22 Impacted cerumen, left ear (principal)
CPT/HCPCS: 99213

== ENCOUNTER 2023-04-23 08:13 | Outpatient (REF) | payer OTHER, SELFPAY ==
--- NOTE | ~2023-04-23 | MM_ITS ---
EXAMINATION: MM SCREENING DIGITAL BREAST TOMOSYNTHESIS, BILATERAL CLINICAL INFORMATION: Screening. Asymptomatic. COMPARISON: Mammography: This study is compared with prior exams dating back to 2020. TECHNIQUE: Digital breast tomosynthesis is performed in both the craniocaudal and mediolateral oblique views along with computer-aided detection (CAD). Synthesized 2D images are generated from the tomosynthesis. FINDINGS: The breasts are heterogeneously dense, which may obscure small masses (ACR BI-RADS breast composition Category c). There are no significant masses, abnormal calcifications, or other abnormalities. There are bilateral well-circumscribed masses shown to represent multiple benign cysts on prior sonography from 2020. There are scattered, unchanged, benign calcifications in each breast. These have been shown to layer and therefore represent benign milk of calcium. MM/MM tomosynthesis screening BI IMPRESSION: No mammographic evidence of malignancy. ASSESSMENT: BI-RADS BI-RADS 2 - Benign Findings RECOMMENDATION: Routine annual mammography screening. 1 year F/U This examination should not preclude the clinical evaluation of a suspicious palpable abnormality. This patient's information was entered into a reminder system with a target due date for their next mammogram.
== END 2023-04-23 08:14 | disposition home or self-care (01) ==
LOC: HO.MAMMO 08:13
PROVIDERS: PCP Internal Medicine; Visit Provider Internal Medicine
DX: Z12.31 Encounter for screening mammogram for malignant neoplasm of breast (principal)
CPT/HCPCS: 77063; 77067

== ENCOUNTER → 2023-04-23 08:15 | Outpatient (BNV) | payer OTHER, SELFPAY | PROVIDERS: PCP Internal Medicine; Visit Provider Radiology Diagnostic Radiology | DX: Z12.31 Encounter for screening mammogram for malignant neoplasm of breast (principal) | CPT/HCPCS: 77063; 77067 ==

== ENCOUNTER 2023-05-17 13:31 | Outpatient (AMB) | payer OTHER, SELFPAY ==
--- NOTE | 2023-05-17 13:37 | MHC.OFFVIS ---
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 She has been doing well from cardiac perspective. Denies any exertional chest pain or shortness of breath. Denies any prolonged palpitation irregular heartbeat. Denies any lightheadedness, syncope. Taking all her medications without any issues. 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[place] Sexual orientation: Straight/Heterosexual Gender identity: Female Female Reproductive History Menstrual Age of Menarche: 17 Review of Systems Const Denies chills, Denies fatigue, Denies fever(s), Denies frequent falls, Denies weakness, Denies weight gain and Denies weight loss ENT Denies dizziness Card Denies chest pain, Denies leg edema, Denies lightheadedness, Denies palpitations, Denies dyspnea, Denies dyspnea on exertion, Denies orthopnea and Denies other (loss of consciousness) Resp Denies cough, Denies dyspnea and Denies dyspnea on exertion GI Denies hematochezia and Denies change in stool character Musc Denies abnormal gait, Denies muscle weakness, Denies numbness, Denies radiating pain into limb and Denies tingling Neuro Denies abnormal gait, Denies dizziness, Denies frequent falls, Denies numbness, Denies tingling and Denies weakness Endo Denies fatigue and Denies palpitations Physical Exam Vital Signs: Last Vital Signs Pulse 63 05/17/23 13:38 BP 110/72 05/17/23 13:38 BMI result Body Mass Index 24.6 Office Procedures EKG Details: EKG shows normal sinus rhythm nonspecific T-wave changes 17504-[id number], Complete Assessment & Plan Assessment & Plan (1) Paroxysmal atrial fibrillation: Code(s): I48.0 - Paroxysmal atrial fibrillation Plan: Highly symptomatic paroxysmal atrial fibrillation which has remained suppressed on therapy with flecainide and metoprolol. She has done well with flecainide therapy. Continue the same. She require concomitant metoprolol therapy as AV brenda blocking agent. Avoidance of stimulants was discussed. No need for oral anticoagulation therapy. Nonspecific T-wave changes noted in anterior lead. She has no current symptoms. Will check some blood work routine today. Will need EKG every 6 months. Will follow up in the clinic in 6 months for EKG in 1 year with me. Thank you for allowing me to partake in the care Orders: Orders Basic Metabolic Panel Today I48.0 - Paroxysmal atrial fibrillation TSH reflex Free T4 Today I48.0 - Paroxysmal atrial fibrillation Liver Panel Today I48.0 - Paroxysmal atrial fibrillation Coding Level of Care Code Est Pt Level 3 (37131) Diagnoses Paroxysmal atrial fibrillation I48.0 CPT Codes EKG - CPT: 18064-[id number], Complete ([id number])
[2023-05-17 13:38] VITALS: BP 110/72; PULSE 63; BMI 24.6
== END 2023-05-17 13:56 | disposition home or self-care (01) ==
PROVIDERS: Visit Provider Internal Medicine Cardiovascular Disease
DX: I48.0 Paroxysmal atrial fibrillation (principal)
CPT/HCPCS: 93010; 99213

== ENCOUNTER → 2023-05-17 13:31 | Outpatient (BNVA) | payer OTHER, SELFPAY | PROVIDERS: Visit Provider Internal Medicine Cardiovascular Disease | DX: I48.0 Paroxysmal atrial fibrillation (principal); Z79.899 Other long term (current) drug therapy | CPT/HCPCS: 93005 ==

== ENCOUNTER 2023-08-18 08:10 | Outpatient (AMB) | payer OTHER, SELFPAY ==
[2023-08-18 08:36] VITALS: BP 110/72; BMI 24.2
--- NOTE | 2023-08-18 08:36 | A.OFFVIS_ITS ---
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 Doing well with no concerns. Known left breast cyst, palpable by patient does not report any significant discomfort or increase in size. She tries to eat healthy and stays active with exercise. Regular monthly menses. Currently is sexually active. She denies vaginal itching and irritation. STI screening offered; she accepts. Denies family history of breast or ovarian cancer. Family history of colon cancer-mom. Last pap smear 2022, negative. Mammogram: 2022. [facility] Medical History Cyst of left breast CMT (Emomjkg-Mnjco-Xzyuc disease) Surgical History Hx of section Hx of foot surgery Family History Mother Colon cancer Social History Household Members: Spouse and Children Housing: House Do you presently have visiting nurse or other home services: No Alcohol intake: never Patient Tobacco Use Status: Never used Tobacco service: No Current occupational status: employed Current occupation: [place] [employer] [place] Sexual orientation: Straight/Heterosexual Gender identity: Female Female Reproductive History Menstrual Age of Menarche: 17 Date of last menstrual period: 07/29/23 control method: other (vasectomy) Total pregnancies: 2 Full term: 1 Number of Living Children: 1 Ab spontaneous: 1 Date of last pap smear: 07/28/22 (neg pap and hpv) Date of Mammogram: 04/23/23 (Birad 2) Review of Systems Const All systems reviewed & are unremarkable except as noted in HPI and below Reports as per HPI Eyes Reports no additional complaints ENT Reports no additional complaints Card Reports no additional complaints Resp Reports no additional complaints GI Reports as per HPI and Reports no additional complaints Reports as per HPI Musc Reports no additional complaints Skin/Breast Reports as per HPI Neuro Reports no additional complaints Psych Reports no additional complaints Endo Reports no additional complaints Vladislav/Lymph Reports no additional complaints Aller/Immun Reports no additional complaints Physical Exam Vital Signs: Last Vital Signs BP 110/72 08/18/23 08:36 BMI result Body Mass Index 24.2 Const General: cooperative, healthy appearing, no acute distress, well developed and alert Orientation/consciousness: patient oriented x3 HEENT Head: Yes normal to inspection Eyes General: appearance normal, both eyes and all related structures Neck Neck: Yes normal visual inspection Thyroid: Thyroid normal Chest Other: Left breast cyst, 4 cm, 10 o'clock position Chest palpation & inspection: normal inspection of the chest and other (no puckering, dimpling, peau de orange, retraction, discharge, masses) Breast/axilla inspection: normal inspection of the breasts Breast/axilla palpation: normal palpation of the breasts Resp Effort & Inspection: normal respiratory effort GI Inspection: Yes normal to inspection Palpation (GI): Soft to palpation Rectal Exam - Female: deferred General: Yes bladder normal to palpation External Female Exam: normal external appearance and normal appearance of the urethra Speculum Exam - Vagina: normal appearance of the vagina, normal palpation and normal vaginal discharge Speculum Exam - Cervix: normal appearance of the cervix and normal palpation Bimanual exam- vagina & uterus: normal bimanual exam, normal palpation, uterine size normal, bladder normal to palpation, normal palpation and non-tender Bimanual Exam- Adnexa, other: no masses Skin General skin exam: no rashes or lesions noted Rashes: no rashes Neuro General: patient oriented x3 Cognition (Neuro): normal cognition Extrem General: Yes normal to inspection Psych Attitude: cooperative Thought process: Normal thought process present Assessment & Plan Assessment & Plan (1) Encounter for well woman exam with routine gynecological exam: Code(s): Z01.419 - Encounter for gynecological examination (general) (routine) without abnormal findings Plan Discussed: Current recommendations for pap smears per ASCCP guidelines. Breast awareness and periodic breast exams. Maintain a healthy lifestyle including a well balanced diet and routine exercise. Mammogram yearly. If any breast changes to call the office sooner than waiting for routine care to make sure she gets evaluated. At this time she has not concerned about the left breast cyst and is not interested in removal. Colonoscopy >45, or at risk sooner. Patient verbalizes understanding and agrees to the plan of care. She was given opportunity to ask questions and all questions were answered to the best of my ability. RTO in one year for annual progress developer examination. This note is constructed using voice recognition software. While every effort has been made to ensure accuracy, generation manager errors may have been included. Coding Level of Care Code Est Pt Prev Care 40-64y(48409) Diagnoses Encounter for well woman exam with routine gynecological exam Z01.419
== END 2023-08-18 09:06 | disposition home or self-care (01) ==
LOC: HO.HWS 08:10
PROVIDERS: PCP Internal Medicine; Visit Provider Advanced Practice Midwife
DX: Z01.419 Encounter for gynecological examination (general) (routine) without abnormal findings (principal)
CPT/HCPCS: 99396

== ENCOUNTER → 2023-08-18 08:10 | Outpatient (BNVA) | payer OTHER, SELFPAY | PROVIDERS: PCP Internal Medicine; Visit Provider Advanced Practice Midwife ==

== ENCOUNTER 2023-10-14 08:17 | Outpatient (AMB) | payer OTHER, SELFPAY ==
[2023-10-14 08:24] VITALS: BP 110/76; PULSE 80; TEMP 36.4; O2SAT 98; BMI 24.0
--- NOTE | 2023-10-14 08:24 | AM.OFFWIN_ITS ---
Intake Vital Signs 10/14/23 08:24 Height 5 ft 4 in Weight 140 lb BMI 24.0 BP 110/76 Blood Pressure Location Lt brachial Position Sitting Pulse 80 Pulse Source Pulse Oximeter Temp 97.6 F Temp Source Temporal Artery Scan Pulse Oximetry (%) 98 Oxygen Delivery Method Room Air Intake Visit Reasons: Sore throat day3 ([phone]) Intake Note: pt is here today for throat started 3 days ago Patient Tobacco Use Status: Never used Tobacco Allergies No Known Allergies Allergy (Verified 10/14/23 08:26) Do you need a note to return to daycare/school/sports/work: No HPI HPI Comments History of Present Illness Details 43 y/o female patient who presents to [facility] in clinic with c/o sore- throat, nasal and chest congestion for 3 days. Denies fevers, chills, nausea or vomiting. She has taken any OTC remedies. Son was sick from Strep 3 weeks ago. FORMERLY [facility], [facility] Medical History Cyst of left breast CMT (Jpgkqne-Vgyyb-Aqfgq disease) Surgical History Hx of section Hx of foot surgery Family History Mother Colon cancer Social History Household Members: Spouse and Children Housing: House Do you presently have visiting nurse or other home services: No Alcohol intake: never Patient Tobacco Use Status: Never used Tobacco service: No Current occupational status: employed Current occupation: [place] [employer] [place] Sexual orientation: Straight/Heterosexual Gender identity: Female Female Reproductive History Menstrual Age of Menarche: 17 Review of Systems Const All systems reviewed & are unremarkable except as noted in HPI and below Physical Exam Vital Signs: Last Vital Signs Temp 97.6 F 10/14/23 08:24 Pulse 80 10/14/23 08:24 BP 110/76 10/14/23 08:24 Pulse Ox 98 10/14/23 08:24 Oxygen Delivery Method Room Air 10/14/23 08:24 BMI result Body Mass Index 24.0 Const General: comfortable and no acute distress Orientation/consciousness: patient oriented x3 HEENT Head: Yes normocephalic Ears: external ears normal and TM's normal bilaterally General nose exam: No nasal discharge present and Abnormal mucous membranes and turbinates present boggy and erythematous Face and sinus: Yes sinuses nontender Mouth: moist mucous membranes Throat: Yes posterior oropharynx normal Resp Effort & Inspection: normal respiratory effort and able to speak in complete sentences Auscultation: clear to auscultation bilaterally, no crackles, no rales, no rhonchi and no wheezes Cardio Rate: regular rate Rhythm: regular rhythm Neuro General: patient oriented x3 Results AMB Rapid Strep AMB Rapid Strep Negative Last Edit by Malika Marcelino on 10/14/23 08:41 Results Reviewed Results Reviewed: Laboratory Last Values Strep Scn [facility] Negative 10/14/23 08:40 Assessment & Plan Assessment & Plan (1) Upper respiratory tract infection: Code(s): J06.9 - Acute upper respiratory infection, unspecified Qualifiers: Pharyngitis/tonsillitis etiology: unspecified etiology URI type: acute pharyngitis Qualified Code(s): J02.9 - Acute pharyngitis, unspecified Plan: - OTC cold and sinus remedies - SARs - Acetaminophen for pain relief - Rest and hydrate with warm fluids. Orders: Orders SARS-CoV2/FLU/RSV Today J06.9 - Acute upper respiratory infection, unspecified Medications: New oxymetazoline 0.05% (Afrin (oxymetazoline)) 2 sprays intranasal Q12H 3 days PRN 15 mL 0RF nasal congestion J06.9 - Acute upper respiratory infection, unspecified pseudoephedrine HCl ER (Sudafed 12 Hour) 120 mg PO Q12H PRN 20 tabs 0RF nasal congestion J06.9 - Acute upper respiratory infection, unspecified Coding Level of Care Code Est Pt Level 3 (50730) Diagnoses Acute pharyngitis, unspecified etiology J02.9 Pharyngitis/tonsillitis etiology: unspecified etiology URI type: acute pharyngitis
== END 2023-10-14 08:47 | disposition home or self-care (01) ==
PROVIDERS: PCP Internal Medicine; Visit Provider Nurse Practitioner Family
DX: J02.9 Acute pharyngitis, unspecified (principal)
CPT/HCPCS: 87880; 99213

== ENCOUNTER 2023-10-14 08:45 | Outpatient (REF) | payer OTHER, SELFPAY ==
[2023-10-14 11:39] LABS: Influenza A PCR NEGATIVE (Negative); Influenza B PCR NEGATIVE (Negative); Resp Syncy Virus RNA Qual PCR NEGATIVE (Negative); SARS COV2 PCR INHOUSE POSITIVE (Negative)
== END 2023-10-14 08:46 | disposition home or self-care (01) ==
LOC: HO.LAB 08:45
PROVIDERS: Visit Provider Nurse Practitioner Family
DX: Z11.52 Encounter for screening for COVID-19 (principal); J06.9 Acute upper respiratory infection, unspecified
CPT/HCPCS: 0241U

== ENCOUNTER → 2023-11-15 08:23 | Outpatient (BNVA) | payer OTHER, SELFPAY | PROVIDERS: PCP Internal Medicine; Visit Provider Internal Medicine Cardiovascular Disease ==

== ENCOUNTER 2024-04-14 09:35 | Outpatient (REF) | payer OTHER, SELFPAY ==
[2024-04-14 11:33] LABS: Hemoglobin 10.9 g/dl (12.0-16.0); Mean Corpuscular HGB Conc 32.1 g/dl (31.0-35.0); Mean Corpuscular Hemoglobin 24.2 pg (27.0-33.0); Mean Corpuscular Volume 75.6 fL (80.0-98.0); Mean Platelet Volume 10.6 fL (9.4-12.3); Platelet Count 262 X10*3/uL (160-400); Red Cell Distribution Width 16.5 % (11.0-16.0)
[2024-04-14 11:56] LABS: Alanine Aminotransferase 10 U/L (0-31); Albumin Level 4.1 g/dL (3.5-5.0); Alkaline Phosphatase 61 U/L (39-117); Anion Gap 13 (12-20); Aspartate Amino Transferase 15 U/L (5-31); Bilirubin Direct 0.2 mg/dL (0.0-0.5); Bilirubin Total 0.8 mg/dL (0.0-1.0); Blood Urea Nitrogen 11 mg/dL (9-16); Calcium 9.4 mg/dL (8.4-10.2); Carbon Dioxide 24 mmol/L (22-29); Chloride 106 mmol/L (96-108); Cholesterol 212 mg/dL (<200); Estimated Glomerular Filt Rate > 60; Glucose Random 90 mg/dL (60-115); HDL Cholesterol 48 mg/dL (>40); Iron 51 mcg/dL (30-160); Percent Iron Saturation 14 % (15-50); Potassium 3.9 mmol/L (3.3-5.1); Sodium 139 mmol/L (135-145); Total Iron Binding Capacity 358 mcg/dL (228-428); Total Protein 7.3 g/dL (6.5-8.0); Unsaturated Iron Binding 307 ug/dL
[2024-04-14 12:01] LABS: TSH reflex Free T4 1.39 uIU/mL (0.32-4.0)
[2024-04-14 12:03] LABS: Ferritin 10 ng/mL (10-250); TSH reflex Free T4 1.38 uIU/mL (0.32-4.0); Vitamin D 25-OH Total 17.7 ng/mL (>30)
[2024-04-14 12:11] LABS: Vitamin B12 367 pg/mL (200-900)
[2024-04-16 17:43] LABS: Mumps Virus IgG Antibody <9.00 AU/mL; Rubella IgG Antibody 2.25 Index; Rubeola IgG (Measles) >300.00 AU/mL; Varicella IgG Antibody 2.71 S/CO
[2024-04-16 18:48] LABS: LDL Cholesterol Direct 137 mg/dL (<100)
== END 2024-04-14 09:36 | disposition home or self-care (01) ==
LOC: HO.HMGCLDS 09:35
PROVIDERS: PCP Internal Medicine; Referring Provider Internal Medicine; Visit Provider Internal Medicine Cardiovascular Disease
DX: Z00.00 Encounter for general adult medical examination without abnormal findings (principal); I48.0 Paroxysmal atrial fibrillation
CPT/HCPCS: 36415; 80053; 82248; 82306; 82465; 82607; 82728; 83540; 83718; 83721; 84443; 85027; 86735; 86762; 86765; 86787

== ENCOUNTER 2024-04-17 14:42 | Outpatient (AMB) | payer OTHER, SELFPAY ==
--- NOTE | 2024-04-17 14:57 | A.OFFVIS_ITS ---
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 She describes it as feeling discomfort with pressure. She denies any breast injury, previous surgery or biopsies to the right breast, no nipple discharge, no underwire bras worn, no new medication changes, and negative family history for breast cancer. LMP due in approximately 2 weeks. History of known non tender, left, 4cm simple breast cyst. 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[place] Sexual orientation: Straight/Heterosexual Gender identity: Female Female Reproductive History Menstrual Age of Menarche: 17 Date of last menstrual period: 03/30/24 Date of Mammogram: 04/23/23 (Birad 2) Review of Systems Const All systems reviewed & are unremarkable except as noted in HPI and below Reports no additional complaints Skin/Breast Reports system reviewed and no additional complaints, except as documented and R eports as per HPI Physical Exam Const General: cooperative, healthy appearing and no acute distress Chest Other: Tenderness noted on the right breast at 05:00 o'clock position. Breast/axilla inspection: normal inspection of the breasts and normal inspection of the axillae Breast/axilla palpation: normal palpation of the breasts Skin General skin exam: no rashes or lesions noted Assessment & Plan Assessment & Plan (1) Breast pain, right: Code(s): N64.4 - Mastodynia Category: Medical Plan Discussed: Plan diagnostic mammogram and right-sided complete breast ultrasound. Continue to wear supportive broad no wonder wires, if need to take an [id number] mild analgesic to try Tylenol. If pain worsens call the office sooner. Possible referral to breast surgeon pending test results. Follow up in office for results. All of her questions and concerns were addressed to the best of my ability and shared decision making. She is agreeable to the plan of care. This note is constructed using voice recognition software. While every effort has been made to ensure accuracy, geospatial information scientist errors may have been included. Orders: Orders MM tomosynthesis diagnostic BI Today N64.4 - Mastodynia, Z12.31 - Encounter for screening mammogram for malignant neoplasm of breast US breast RT complete Today N64.4 - Mastodynia Coding Level of Care Code Est Pt Level 3 (77325) Diagnoses Breast pain, right N64.4
== END 2024-04-17 15:25 | disposition home or self-care (01) ==
LOC: HO.HWS 14:42
PROVIDERS: PCP Internal Medicine; Visit Provider Advanced Practice Midwife
DX: N64.4 Mastodynia (principal)
CPT/HCPCS: 99213

== ENCOUNTER → 2024-04-17 14:42 | Outpatient (BNVA) | payer OTHER, SELFPAY | PROVIDERS: PCP Internal Medicine; Visit Provider Advanced Practice Midwife ==

== ENCOUNTER 2024-05-17 13:50 | Outpatient (AMB) | payer OTHER, SELFPAY ==
--- NOTE | 2024-05-17 13:53 | A.OFFVIS_ITS ---
Intake Visit Reasons: ? 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 Reports menses are regular cycles lasting 5-7 days with the exception of last cycle which lasted 3 days and was much quantometer operator than usual. History of vasectomy with . She denies any pelvic pain, urinary symptoms, bowel changes, changes in laundry detergents, soaps or tissue paper. She denies any recent exposure to antibiotics. 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[place] Sexual orientation: Straight/Heterosexual Gender identity: Female Female Reproductive History Menstrual Age of Menarche: 17 Date of last menstrual period: 04/23/24 Review of Systems Const All systems reviewed & are unremarkable except as noted in HPI and below Physical Exam Const General: cooperative, healthy appearing and no acute distress Orientation/consciousness: patient oriented x3 GI Inspection: Yes normal to inspection Palpation (GI): Soft to palpation and Other GI palpation findings present (Nontender) Rectal Exam - Female: visual inspection normal Other: External: Erythematous and slight edematous, no lesions General: Yes bladder normal to palpation External Female Exam: normal appearance of the urethra Speculum Exam - Vagina: normal appearance of the vagina, normal palpation and abnormal vaginal discharge (Abundant with white clumping) Speculum Exam - Cervix: normal appearance of the cervix and normal palpation Bimanual exam- vagina & uterus: normal bimanual exam, normal palpation, uterine size normal, bladder normal to palpation, normal palpation, uterine shape normal and non-tender Bimanual Exam- Adnexa, other: normal adnexae Neuro General: patient oriented x3 Results AMB Test Urine AMB Test Urine Negative Last Edit by ESMER Leach on 05/17/24 14:14 Assessment & Plan Assessment & Plan (1) Vaginitis: Code(s): N76.0 - Acute vaginitis Qualifiers: Chronicity: acute Qualified Code(s): N76.0 - Acute vaginitis Plan Discussed: Symptoms are consistent with a yeast infection, await BV panel for final results. Initiate treatment with topical in intravaginal cream. UPT is negative today. Monitor menstrual cycles, perimenopausal changes, report any unscheduled bleeding, bleeding episodes <24 days apart or heavy/prolonged menstrual bleeding. Call the office for a follow up for any concerns. Instructions: Clean with warm water, no soaps, scented products. Use a cool cloth to the area several times a day if swollen and/or uncomfortable. Wear loose, cotton underclothes, avoid tight outer clothing. Air when possible. No coitus until well healed. Complete all medications as prescribed. Await final pending results for any changes in the plan of care. Call the office if there is no improvement in 24-48hrs., or if worsening symptoms. Keep appointment next month for breast evaluation follow up. All of her questions and concerns were addressed to the best of my ability and shared decision making. She is agreeable to the plan of care. This note is constructed using voice recognition software. While every effort has been made to ensure accuracy, senior director creative services errors may have been included. Orders: Orders Bacterial Vaginosis Panel Today N89.8 - Other specified noninflammatory disorders of vagina Medications: New clotrimazole-betamethasone 1-0.05 % apply externally a thin coat to the area 1 appl topical BID 7 days 45 grams 0RF itching terconazole 0.8% 1 appful vaginal BEDTIME 3 days 20 grams 0RF Coding Level of Care Code Est Pt Level 3 (82003) Diagnoses Acute vaginitis N76.0 Chronicity: acute
== END 2024-05-17 14:13 | disposition home or self-care (01) ==
LOC: HO.HWS 13:50
PROVIDERS: PCP Internal Medicine; Visit Provider Advanced Practice Midwife
DX: N76.0 Acute vaginitis (principal); Z32.02 Encounter for pregnancy test, result negative
CPT/HCPCS: 99213

== ENCOUNTER 2024-05-17 13:50 | Outpatient (REF) | payer OTHER, SELFPAY ==
[2024-05-17 18:11] LABS: Bacterial Vaginosis PCR POSITIVE (Negative); Candida Group PCR DETECTED (Not Detect); Candida glab krusei PCR NOT DETECTED (Not Detect); Trichomonas vaginalis PCR NOT DETECTED (Not Detect)
== END 2024-05-17 13:51 | disposition home or self-care (01) ==
LOC: HO.LAB 13:50
PROVIDERS: PCP Internal Medicine; Visit Provider Advanced Practice Midwife
DX: N89.8 Other specified noninflammatory disorders of vagina (principal)
CPT/HCPCS: 0352U; 81025

== ENCOUNTER 2024-05-30 14:49 | Outpatient (REF) | payer OTHER, SELFPAY ==
--- NOTE | ~2024-05-30 | MM_ITS ---
EXAMINATION: MM DIAGNOSTIC DIGITAL BREAST TOMOSYNTHESIS, BILATERAL US BREAST LIMITED, RIGHT MAMMOGRAPHY: CLINICAL INFORMATION: 44-year-old female, complaining of on and off again pain an palpable focus in the right breast 5:00 axis, (although the 7:00 axis was marked by the patient as the palpable focus with patient tenderness). Patient also due for yearly. COMPARISON: Mammography: 04/23/2023, 08/02/2022, 04/17/2022, 04/22/2021, 04/04/2021. Left breast ultrasound 08/02/2022, and 04/22/2021. (Demonstrating numerous cysts). TECHNIQUE: Digital breast tomosynthesis is performed in both the craniocaudal and mediolateral oblique views along with computer-aided detection (CAD). Synthesized 2D images are generated from the tomosynthesis. This was followed by targeted right breast ultrasound in the region of 7:00 palpable focus and pain. FINDINGS: The breasts are extremely dense, which lowers the sensitivity of mammography (ACR BI-RADS breast composition Category d). Mammography was limited in this patient due to the extreme fibrocystic density of the underlying breast parenchyma with numerous benign calcifications which are global, bilaterally. There are numerous benign type calcifications globally throughout both breasts, the majority which appear to layer on the MLO projection suggesting milk of calcium. There are numerous oval circumscribed masses throughout both breasts, the largest in the upper outer right breast, consistent with known breast cysts. Aside from the above findings, no suspicious masses, suspicious grouped pleomorphic calcifications, or areas of architectural distortion are identified in either breast. There is no skin or axillary abnormality. ULTRASOUND: CLINICAL INFORMATION: As above. Palpable abnormality and tenderness 7:00 axis right breast. Order states 5:00; patient states 7:00 right breast. Marker was placed at 7:00 by the patient. COMPARISON: Prior right breast ultrasound. TECHNIQUE: Targeted right breast sonographic evaluation was performed using a high frequency linear transducer. Right breast was scanned from 5-9 o'clock axis to include the area of concern. Selected archived documentation. FINDINGS: RIGHT BREAST: -In the region of palpable concern, 7:00 axis right breast, there are 2 immediately adjacent simple cysts, the larger measuring 8 x 6 x 8 mm, the smaller measuring 5 mm in diameter slightly more superficial. These correlate with the palpable focus and focus of tenderness. These findings are benign. There are other cysts throughout the right breast in keeping with fibrocystic changes. MM/MM tomosynthesis diagnostic BI IMPRESSION: -There are no findings suspicious for malignancy in either breast. -Area of palpable concern and tenderness correlates with 2 adjacent small simple breast cysts. These are benign. No further follow-up recommended. -There are innumerable scattered benign calcifications in bilateral cysts in both breasts, similar to prior exams. -Recommend the patient return to routine screening. OVERALL ASSESSMENT: Mammography: BI-RADS 2 - Benign Findings Ultrasound: BI-RADS 2 - Benign Findings RECOMMENDATION: 1 year F/U This patient's information was entered into a reminder system with a target due date for their next mammogram. Electronically signed by: Joao Rodriguez MD 05/30/2024 03:52 PM [facility]
== END 2024-05-30 14:50 | disposition home or self-care (01) ==
LOC: HO.MAMMO 14:49
PROVIDERS: PCP Internal Medicine; Visit Provider Advanced Practice Midwife
DX: N64.4 Mastodynia (principal)
CPT/HCPCS: 76642; 77062; 77066

== ENCOUNTER → 2024-05-30 15:00 | Outpatient (BNV) | payer OTHER, SELFPAY | PROVIDERS: PCP Internal Medicine; Visit Provider Radiology Diagnostic Radiology | DX: N64.4 Mastodynia (principal) | CPT/HCPCS: 76642; 77062; 77066 ==

== ENCOUNTER 2024-06-05 11:07 | Outpatient (AMB) | payer OTHER, SELFPAY ==
--- NOTE | 2024-06-05 11:10 | MHC.OFFVIS ---
Intake Visit Reasons: TV Ultra sound breast follow up Mumps Developer Required: No Channeler Insole: Channeler Insole Present Allergies No Known Allergies Allergy (Verified 05/17/24 13:53) Is last menstrual period known: Yes HPI Comments Details: Tele glen daniel visit 11:30-11:35. I spent 5 minutes speaking with the patient on the phone plus an additional 5 minutes reviewing the chart and 5 minutes updating the medical record for a total of 15 minutes. Patient presents via phone to discuss: Breast imaging results due to history of right breast pain. 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[place] Sexual orientation: Straight/Heterosexual Gender identity: Female Female Reproductive History Menstrual Age of Menarche: 17 Review of Systems Const All systems reviewed & are unremarkable except as noted in HPI and below Endo Reports no additional complaints Physical Exam Const General: cooperative, healthy appearing and no acute distress Psych Appearance: well kempt Attitude: cooperative Thought process: Normal thought process present Telehealth Telehealth Telehealth Platform: Thucy Location of provider rendering services: practice address Location of patient: other ([facility]) Patient Identification confirmed using: Name, : Yes Telehealth method: video Patient verbally consented to treatment: Yes Patient verbally consented to billing insurance company: Yes Patient informed of any privacy concerns related to visit: Yes Results Reviewed Results Reviewed: [facility] [address] [place], [place] [address] Ultrasound Report Signed Patient: Abril Pruitt MR#: [id number] : 1980 Acct:[id number] Age/Sex: 44 / F ADM Date: 05/30/24 Loc: HO.MAMMO Attending Dr: Albertina Bradley CNM Ordering Physician: Albertina Bradley CNM Date of Service: 05/30/24 Procedure(s): US breast RT limited mamm only Accession Number(s): [id number] cc: Joan Cottrell MD; Albertina Bradley CNM~ EXAMINATION: MM DIAGNOSTIC DIGITAL BREAST TOMOSYNTHESIS, BILATERAL US BREAST LIMITED, RIGHT MAMMOGRAPHY: CLINICAL INFORMATION: 44-year-old female, complaining of on and off again pain an palpable focus in the right breast 5:00 axis, (although the 7:00 axis was marked by the patient as the palpable focus with patient tenderness). Patient also due for yearly. COMPARISON: Mammography: 04/23/2023, 08/02/2022, 04/17/2022, 04/22/2021, 04/04/2021. Left breast ultrasound 08/02/2022, and 04/22/2021. (Demonstrating numerous cysts). TECHNIQUE: Digital breast tomosynthesis is performed in both the craniocaudal and mediolateral oblique views along with computer-aided detection (CAD). Synthesized 2D images are generated from the tomosynthesis. This was followed by targeted right breast ultrasound in the region of 7:00 palpable focus and pain. FINDINGS: The breasts are extremely dense, which lowers the sensitivity of mammography (ACR BI-RADS breast composition Category d). Mammography was limited in this patient due to the extreme fibrocystic density of the underlying breast parenchyma with numerous benign calcifications which are global, bilaterally. There are numerous benign type calcifications globally throughout both breasts, the majority which appear to layer on the MLO projection suggesting milk of calcium. There are numerous oval circumscribed masses throughout both breasts, the largest in the upper outer right breast, consistent with known breast cysts. Aside from the above findings, no suspicious masses, suspicious grouped pleomorphic calcifications, or areas of architectural distortion are identified in either breast. There is no skin or axillary abnormality. ULTRASOUND: CLINICAL INFORMATION: As above. Palpable abnormality and tenderness 7:00 axis right breast. Order states 5:00; patient states 7:00 right breast. Marker was placed at 7:00 by the patient. COMPARISON: Prior right breast ultrasound. TECHNIQUE: Targeted right breast sonographic evaluation was performed using a high frequency linear transducer. Right breast was scanned from 5-9 o'clock axis to include the area of concern. Selected archived documentation. FINDINGS: RIGHT BREAST: -In the region of palpable concern, 7:00 axis right breast, there are 2 immediately adjacent simple cysts, the larger measuring 8 x 6 x 8 mm, the smaller measuring 5 mm in diameter slightly more superficial. These correlate with the palpable focus and focus of tenderness. These findings are benign. There are other cysts throughout the right breast in keeping with fibrocystic changes. US/US breast RT limited mamm only IMPRESSION: -There are no findings suspicious for malignancy in either breast. -Area of palpable concern and tenderness correlates with 2 adjacent small simple breast cysts. These are benign. No further follow-up recommended. -There are innumerable scattered benign calcifications in bilateral cysts in both breasts, similar to prior exams. -Recommend the patient return to routine screening. OVERALL ASSESSMENT: Mammography: BI-RADS 2 - Benign Findings Ultrasound: BI-RADS 2 - Benign Findings RECOMMENDATION: 1 year F/U This patient's information was entered into a reminder system with a target due date for their next mammogram. Electronically signed by: Joao Rodriguez MD 05/30/2024 03:52 PM [facility] Dictated By: Joao Rodriguez MD Signed By: <Electronically signed by Joao Rodriguez MD in OV> 05/30/24 1552 DD/ 1530 TD/TT: 05/30/24 1547 Sample Tester Grinder: Assessment & Plan Assessment & Plan (1) Fibrocystic breast: Code(s): N60.19 - Diffuse cystic mastopathy of unspecified breast Qualifiers: Laterality: unspecified laterality Qualified Code(s): N60.19 - Diffuse cystic mastopathy of unspecified breast (2) Cyst of right breast: Code(s): N60.01 - Solitary cyst of right breast Plan Discussed: Imaging findings-see report. Largest cyst 8 mm right breast. Fibrocystic breast. Comfort measures-supportive bra, OTC medications as directed and heating pad, and arnica gel topically p.r.n. Annual exam scheduled 09/06/2024. All of her questions and concerns were addressed to the best of my ability and shared decision making. She is agreeable to the plan of care. This note is constructed using voice recognition software. While every effort has been made to ensure accuracy, line patrolman errors may have been included. Coding Level of Care Code Tele Est Pt Level 3 (51659) Diagnoses Fibrocystic breast disease (FCBD), unspecified laterality N60.19 Laterality: unspecified laterality Cyst of right breast N60.01
== END 2024-06-05 12:15 | disposition home or self-care (01) ==
LOC: HO.HWS 11:07
PROVIDERS: PCP Internal Medicine; Visit Provider Advanced Practice Midwife
DX: N60.19 Diffuse cystic mastopathy of unspecified breast (principal); N60.01 Solitary cyst of right breast
CPT/HCPCS: 99213

== ENCOUNTER 2024-07-24 14:28 | Outpatient (AMB) | payer OTHER, SELFPAY ==
--- NOTE | 2024-07-24 14:36 | A.OFFVIS_ITS ---
Vital Signs 07/24/24 14:37 Height 5 ft 4 in Weight 141 lb 1.533 oz BMI 24.2 BP 116/70 Blood Pressure Location Lt brachial Position Sitting Pulse 62 Intake Visit Reasons: r/s 05/17/24 1 yr followup w/ekg Intake Note: 1 year follow-up with ekg feeling good Chief Of Safety And Protection Required: No Allergies No Known Allergies Allergy (Verified 05/17/24 13:53) Medication List - Last Reconciled 07/24/24 by Herman Hopkins MD flecainide 100 mg PO Q12H metoprolol succinate ER 25 mg PO DAILY HPI Comments Details: Abril comes for annual follow-up. She has been doing overall well from cardiac perspective. She says she is not most particular about taking her medications on time. And some days she might feel more symptoms of palpitation still remembers that she was to take a flecainide. She has not had any sustained episodes of atrial fibrillation she says she feels more symptoms when she has some sort of illness. She has no exertional symptoms of lightheadedness, syncope, chest pain. No heart failure symptoms. 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[place] Sexual orientation: Straight/Heterosexual Gender identity: Female Female Reproductive History Menstrual Age of Menarche: 17 Review of Systems Const Denies chills, Denies fatigue, Denies fever(s), Denies frequent falls, Denies weakness, Denies weight gain and Denies weight loss ENT Denies dizziness Card Denies chest pain, Denies leg edema, Denies lightheadedness, Denies palpitat ions, Denies dyspnea, Denies dyspnea on exertion, Denies orthopnea and Denies other (loss of consciousness) Resp Denies cough, Denies dyspnea and Denies dyspnea on exertion GI Denies hematochezia and Denies change in stool character Musc Denies abnormal gait, Denies muscle weakness, Denies numbness, Denies radiating pain into limb and Denies tingling Neuro Denies abnormal gait, Denies dizziness, Denies frequent falls, Denies numbness, Denies tingling and Denies weakness Endo Denies fatigue and Denies palpitations Physical Exam Vital Signs: Last Vital Signs Pulse 62 07/24/24 14:37 BP 116/70 07/24/24 14:37 BMI result Body Mass Index 24.2 Const General: cooperative, comfortable, no acute distress, alert and awake Nutritional Appearance: thin Orientation/consciousness: patient oriented x3 Limitations: no limitations Neck Neck: Yes trachea midline, Yes supple and Yes no JVD Resp Effort & Inspection: normal respiratory effort Auscultation: clear to auscultation bilaterally Cardio Jugular venous distension: no JVD Palpation: normal PMI Rate: regular rate Rhythm: regular rhythm Heart sounds: S1 normal heart sound present and S2 normal heart sound present GI Auscultation: normal bowel sounds Skin General skin exam: no rashes or lesions noted Neuro General: patient oriented x3 and no focal motor deficits Extrem General: Yes no clubbing, cyanosis or edema Psych Appearance: grossly normal Office Procedures EKG Details: EKG shows normal sinus rhythm normal EKG at 62 beats per minute [id number], Complete Assessment & Plan Assessment & Plan (1) Paroxysmal atrial fibrillation: Code(s): I48.0 - Paroxysmal atrial fibrillation Category: Medical Plan: Highly symptomatic paroxysmal atrial fibrillation well suppressed on current antiarrhythmic drug therapy with flecainide. Needs concomitant metoprolol therapy. Importance of therapy was discussed. Compliance with medication was discussed. Also compliance with follow-up with especially EKGs every 6 months was discussed. Continue flecainide with current dose of metoprolol. Avoidance of stimulants was discussed. Stress mitigation strategies were discussed. No indication for anticoagulation therapy at this point in time. If fails antiarrhythmic drug therapy can consider ablation. Follow up in the clinic in 6 months for EKG in 1 year with me. Thank you for allowing me to partake in his care Coding Level of Care Code Est Pt Level 4 (60158) Complex EM visit Add On G2211 Diagnoses Paroxysmal atrial fibrillation I48.0 CPT Codes EKG - CPT: 19553-[id number], Complete ([id number])
[2024-07-24 14:37] VITALS: BP 116/70; PULSE 62; BMI 24.2
== END 2024-07-24 14:54 | disposition home or self-care (01) ==
PROVIDERS: PCP Internal Medicine; Visit Provider Internal Medicine Cardiovascular Disease
DX: I48.0 Paroxysmal atrial fibrillation (principal)
CPT/HCPCS: 93010; 99214

== ENCOUNTER → 2024-07-24 14:28 | Outpatient (BNVA) | payer OTHER, SELFPAY | PROVIDERS: PCP Internal Medicine; Visit Provider Internal Medicine Cardiovascular Disease | DX: I48.0 Paroxysmal atrial fibrillation (principal); Z79.899 Other long term (current) drug therapy | CPT/HCPCS: 93005 ==

== ENCOUNTER 2024-10-09 15:09 | Outpatient (AMB) | payer OTHER, SELFPAY ==
--- NOTE | 2024-10-09 15:11 | MHC.OFFVIS ---
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 Hx partner w/vasectomy. home UPT was negative in July. History of right breast cyst, denies any pain. She denies vaginal itching and irritation. STI screening offered; she declines. She tries to eat healthy and stays active with exercise. Denies family history of ovarian or breast cancer. Family history of colon cancer-mom. Last pap smear 2022, negative. Mammogram: 2023. 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 [employer] Sexual orientation: Straight/Heterosexual Gender identity: Female Female Reproductive History Menstrual Age of Menarche: 17 Duration of menses: 6-7 days Date of last menstrual period: 09/30/24 control method: other (vasectomy) Total pregnancies: 2 Full term: 1 Number of Living Children: 1 Ab spontaneous: 1 Date of last pap smear: 07/28/22 (neg pap and hpv) Date of Mammogram: 05/30/24 (Birad 2) Review of Systems Const All systems reviewed & are unremarkable except as noted in HPI and below Reports as per HPI Eyes Reports no additional complaints ENT Reports no additional complaints Card Reports no additional complaints Resp Reports no additional complaints GI Reports as per HPI and Reports no additional complaints Reports as per HPI Musc Reports no additional complaints Skin/Breast Reports as per HPI Neuro Reports no additional complaints Psych Reports no additional complaints Endo Reports no additional complaints Vladislav/Lymph Reports no additional complaints Aller/Immun Reports no additional complaints Physical Exam Vital Signs: Last Vital Signs BP 112/68 10/09/24 15:12 BMI result Body Mass Index 24.7 Const General: cooperative, healthy appearing, no acute distress, well developed and alert Orientation/consciousness: patient oriented x3 HEENT Head: Yes normal to inspection Eyes General: appearance normal, both eyes and all related structures Neck Neck: Yes normal visual inspection Thyroid: Thyroid normal Chest Other: Right side slightly larger, nontender Chest palpation & inspection: normal inspection of the chest and other (no puckering, dimpling, peau de orange, retraction, discharge, masses) Breast/axilla inspection: normal inspection of the breasts Breast/axilla palpation: normal palpation of the breasts Resp Effort & Inspection: normal respiratory effort GI Inspection: Yes normal to inspection Palpation (GI): Soft to palpation Rectal Exam - Female: deferred General: Yes bladder normal to palpation External Female Exam: normal external appearance and normal appearance of the urethra Speculum Exam - Vagina: normal appearance of the vagina, normal palpation and normal vaginal discharge Speculum Exam - Cervix: normal appearance of the cervix and normal palpation Bimanual exam- vagina & uterus: normal bimanual exam, normal palpation, uterine size normal, bladder normal to palpation, normal palpation and non-tender Bimanual Exam- Adnexa, other: no masses Skin General skin exam: no rashes or lesions noted Rashes: no rashes Neuro General: patient oriented x3 Cognition (Neuro): normal cognition Extrem General: Yes normal to inspection Psych Attitude: cooperative Thought process: Normal thought process present Assessment & Plan Assessment & Plan (1) Encounter for well woman exam with routine gynecological exam: Code(s): Z01.419 - Encounter for gynecological examination (general) (routine) without abnormal findings Category: Medical Plan Discussed: Current recommendations for pap smears per ASCCP guidelines. Breast awareness and periodic breast exams. Mammogram yearly. Report any breast pain for sooner evaluation. Maintain a healthy lifestyle including a well balanced diet and routine exercise. Colonoscopy >45, or at risk sooner. Patient verbalizes understanding and agrees to the plan of care. She was given opportunity to ask questions and all questions were answered to the best of my ability. RTO in one year for annual lead software test engineer examination. This note is constructed using voice recognition software. While every effort has been made to ensure accuracy, manager animation errors may have been included. Coding Level of Care Code Est Pt Prev Care 40-64y(92615) Diagnoses Encounter for well woman exam with routine gynecological exam Z01.419
[2024-10-09 15:12] VITALS: BP 112/68; BMI 24.7
== END 2024-10-09 15:55 | disposition home or self-care (01) ==
LOC: HO.HWS 15:09
PROVIDERS: PCP Internal Medicine; Visit Provider Advanced Practice Midwife
DX: Z01.419 Encounter for gynecological examination (general) (routine) without abnormal findings (principal)
CPT/HCPCS: 99396; 99459

== ENCOUNTER 2025-05-11 08:49 | Outpatient (REF) | payer OTHER, SELFPAY | END 2025-05-11 08:50 | disposition home or self-care (01) | LOC: HO.MAMMO 08:49 | PROVIDERS: PCP Internal Medicine; Referring Provider Advanced Practice Midwife; Visit Provider Internal Medicine | DX: Z12.31 Encounter for screening mammogram for malignant neoplasm of breast (principal) | CPT/HCPCS: 77063; 77067 ==

== ENCOUNTER → 2025-05-11 09:00 | Outpatient (BNV) | payer OTHER, SELFPAY | PROVIDERS: PCP Internal Medicine; Referring Provider Advanced Practice Midwife; Visit Provider Internal Medicine | DX: Z12.31 Encounter for screening mammogram for malignant neoplasm of breast (principal) | CPT/HCPCS: 77063; 77067 ==